=== PATIENT | male | born 1935 | race Caucasian/White ===

== ENCOUNTER → 2016-04-12 | Outpatient (CLI) | payer OTHER, MEDICARE | LOC: MMPC 09:00 | PROVIDERS: ATTEND Internal Medicine | DX: Z79.01 Long term (current) use of anticoagulants (principal); Z51.81 Encounter for therapeutic drug level monitoring; I48.91 Unspecified atrial fibrillation | CPT/HCPCS: 85610 ==

== ENCOUNTER → 2016-05-10 | Outpatient (CLI) | payer OTHER, MEDICARE ==
[2016-05-10 15:48] LABS: BUN/CREATININE RATIO 14.54 (6-20); CALCIUM 9.1 mg/dL (8.7-10.7); CREATININE 1.1 mg/dL (0.70-1.50); POTASSIUM 4.2 meq/L (3.8-5.2)
[2016-05-10 15:50] LABS: HEMOGLOBIN A1C 6.31 % (4.2-6.0); MEAN BLOOD GLUCOSE (CALC) 124.123 mg/dL
== END ==
LOC: MOB LAB 14:24
PROVIDERS: ATTEND Internal Medicine
DX: E11.9 Type 2 diabetes mellitus without complications (principal); I48.91 Unspecified atrial fibrillation; J43.9 Emphysema, unspecified; I10 Essential (primary) hypertension; F17.210 Nicotine dependence, cigarettes, uncomplicated; Z99.81 Dependence on supplemental oxygen
CPT/HCPCS: 36415; 80048; 83036; 99213

== ENCOUNTER → 2016-07-12 | Outpatient (CLI) | payer OTHER, MEDICARE ==
[2016-07-12 08:28] LABS: BASOPHILS # (AUTO) 0.02 10*3/UL; BASOPHILS % (AUTO) 0.4 % (0-1); EOSINOPHILS # (AUTO) 0.14 10*3/UL; EOSINOPHILS % (AUTO) 2.6 % (0-8); HEMATOCRIT 44.9 % (42.0-52.0); HEMOGLOBIN 14.3 g/dL (14.0-18.0); LYMPHOCYTES # (AUTO) 1.89 10*3/uL; MEAN CORPUSCULAR HEMOGLOBIN 33.3 PG (27-31); MEAN CORPUSCULAR HGB CONC 31.8 g/dL (33-37); MEAN CORPUSCULAR VOLUME 104.7 FL (80-90); MEAN PLATELET VOLUME 10.1 FL (7.4-12.2); MONOCYTES # (AUTO) 1.55 10*3/UL (0.3-0.8); NEUTROPHILS # (AUTO) 1.74 10*3/UL; NEUTROPHILS % (AUTO) 32.5 % (50-80); RED BLOOD COUNT 4.29 10^6/uL (4.70-6.10)
[2016-07-12 08:40] LABS: PLATELET MORPHOLOGY COMMENT NORMAL MORPHOLOGY (NORM); RBC MORPHOLOGY COMMENT NORMAL MORPHOLOGY (NORM); WBC MORPHOLOGY COMMENT NORMAL MORPHOLOGY (NORM)
== END ==
LOC: LAB 07:57
PROVIDERS: ATTEND Internal Medicine
DX: D72.821 Monocytosis (symptomatic) (principal); J44.9 Chronic obstructive pulmonary disease, unspecified; I10 Essential (primary) hypertension; Z79.01 Long term (current) use of anticoagulants; Z51.81 Encounter for therapeutic drug level monitoring; I48.91 Unspecified atrial fibrillation
CPT/HCPCS: 36415; 85025; 85610

== ENCOUNTER → 2016-07-19 | Outpatient (CLI) | payer OTHER, MEDICARE | LOC: LAB 09:46 | PROVIDERS: ATTEND Dentist Oral and Maxillofacial Surgery | DX: Z79.01 Long term (current) use of anticoagulants (principal) | CPT/HCPCS: 36415; 85610 ==

== ENCOUNTER 2016-07-20 20:31 | Emergency (ER) | payer OTHER, MEDICARE ==
[2016-07-20] MEDS ORDERED: Sodium Chloride 0.9% 1,000 ML PRIMARY IV ONE (21:00)
[2016-07-20] MEDS ORDERED: NORMAL SALINE 10 ML SYRINGE FLUSH IVP PRN (21:00)
[2016-07-20 21:36] LABS: BASOPHILS # (AUTO) 0.01 10*3/UL; BASOPHILS % (AUTO) 0.1 % (0-1); EOSINOPHILS # (AUTO) 0.12 10*3/UL; EOSINOPHILS % (AUTO) 0.9 % (0-8); HEMATOCRIT 43.6 % (42.0-52.0); HEMOGLOBIN 13.8 g/dL (14.0-18.0); MEAN CORPUSCULAR HEMOGLOBIN 33.3 PG (27-31); MEAN CORPUSCULAR HGB CONC 31.7 g/dL (33-37); MEAN CORPUSCULAR VOLUME 105.1 FL (80-90); MEAN PLATELET VOLUME 10.4 FL (7.4-12.2); MONOCYTES # (AUTO) 3.73 10*3/UL (0.3-0.8); MONOCYTES % (AUTO) 28.1 % (5-15); NEUTROPHILS # (AUTO) 8.44 10*3/UL; NEUTROPHILS % (AUTO) 63.6 % (50-80); RED BLOOD COUNT 4.15 10^6/uL (4.70-6.10)
[2016-07-20 21:41] LABS: PLATELET MORPHOLOGY COMMENT NORMAL MORPHOLOGY (NORM); RBC MORPHOLOGY COMMENT NORMAL MORPHOLOGY (NORM); WBC MORPHOLOGY COMMENT NORMAL MORPHOLOGY (NORM)
[2016-07-20 21:44] VITALS: RESP 24; TEMP 97.5
[2016-07-20 21:47] LABS: BUN/CREATININE RATIO 17.27 (6-20); C-REACTIVE PROTEIN 1.4 mg/dL (0.0-0.9); CALCIUM 8.9 mg/dL (8.7-10.7); MAGNESIUM 1.6 mg/dL (1.6-2.4); SERUM ALBUMIN 4.2 g/dL (3.5-4.8)
--- NOTE | 2016-07-20 21:59 | EKG ---
[address] [address] Measurements Intervals Volin Rate: 70 P: MD: 0 QRS: -89 QRSD: 131 T: 87 QT: 412 QTc: 432 Interpretive Statements ELECTRONIC VENTRICULAR PACEMAKER ABNORMAL RHYTHM ECG Compared to ECG 02/01/2015 13:11:28 Atrial-paced complex(es) or rhythm no longer present Electronically Signed On 07-26-16 10:18:24 MDT by Edwin Davis MD [email or web address]
[2016-07-20] MEDS ORDERED: CLINDAMYCIN 150 MG CAPSULE PO SCH (22:30)
--- NOTE | 2016-07-20 23:36 | PDOC ---
General Adult HPI - General Chief Complaint: General Medical Stated Complaint: TREMORS Date Seen by Provider: 07/20/16 Time Seen by Provider: 20:35 Source: POSITIVE: Patient Exam Limitations: POSITIVE: No limitations Nurse's Notes Reviewed & Considered: Yes - History of Present Illness Initial Comment: The patient is an 80-year-old male who presents to the emergency department with shakiness. He underwent extensive dental procedure with the oral surgeon in [place] earlier this afternoon. He had several teeth removed including a wisdom tooth that was impacted. He also reports a known history of chronic atrial fibrillation and current pacer/defibrillator. He is currently taking Coumadin, Plavix and aspirin. None of this was discontinued prior to his procedure this morning. He apparently had an INR in [place] this morning prior to his dental work. His states that he did receive sedation when he was at the office during the procedure and she had to assist him into the car. She states that this evening he had onset of generalized shakiness. He had taken some pain medication and reports that his pain in his jaw is tolerable. He does have an increased area of swelling to the left jaw. He denies any current headache, chest pain, increased shortness of breath or any other associated symptoms. He does have COPD and wears oxygen at home continuously at 2 L. On arrival here in the emergency room his oxygen saturations were in the 80s on 2 L and he was bumped up to 4 to improve his oxygen saturations. Have you received a tetanus shot in the past 10 years?: Yes - Patient Home Medications Home Medications: Home Medications Aspirin 1 tab ORAL QD tab 09/07/10 Blood Sugar Diagnostic [Freestyle Lite Test Strips] 1 strip MC DAILY #90 strip 09/28/13 Atenolol 50 mg PO BID tab 11/08/13 Digoxin 1 tab PO DAILY tab 11/08/13 Clopidogrel Bisulfate [Plavix] 75 mg PO DAILY 03/03/14 Losartan Potassium 25 mg PO BID #30 tab 05/22/14 Multivitamin with Minerals [One Daily Complete] 1 tab PO DAILY 07/06/14 Tamsulosin HCl [Flomax] 1 tab PO QHS #90 tab 11/21/15 Albuterol Neb Soln 0.083% 1 vial INH Q4-6HRSPRN #120 vial 01/29/16 Methylprednisolone [Medrol] 4 mg PO TAD #21 box 01/29/16 Mirtazapine [Remeron] 1 tab-cap PO QHS #30 tab 02/12/16 Gabapentin 2 tab PO QD tab 03/03/16 Hydrocodone/Acetaminophen [Hydrocodon-Acetaminoph 7.5-325] 1 tab-cap PO Q4-6H # 60 tab 03/03/16 Atorvastatin Calcium [Lipitor] 1 tab-cap PO QHS #90 tab-cap 03/24/16 Warfarin Sodium 1 tab-cap PO ASDIR #30 tab 04/16/16 Budesonide Neb Soln [Pulmicort Neb Soln] 0.5 mg NEB DAILY #90 ml 06/29/16 Albuterol/Ipratrop Neb Soln [Duoneb Neb Soln] 1 vial NEB Q4H PRN #540 box Clindamycin HCl [Cleocin HCl] 300 mg PO TID #21 capsule 07/20/16 - Patient Allergies Allergies/Adverse Reactions: Allergies Allergy/AdvReac Type Severity Reaction Status Date / Time Penicillins Allergy Severe ANAPHLAXIS Verified 07/20/16 20:39 levofloxacin [Levofloxacin] Allergy Mild reticular Verified 07/20/16 20:39 rash on the trunk metoprolol succinate Allergy HIVES Verified 07/20/16 20:39 [From Toprol XL] sitagliptin phosphate AdvReac Mild diarrhea Verified 07/20/16 20:39 [From Januvia] and electrolyte abnormalities bee sting Allergy Severe ANAPHLAXIS Uncoded 07/20/16 20:39 HORSE SERUM Allergy Intermediate HIVES Uncoded 07/20/16 20:39 Past Medical History - heen HEENT History: Hard of Hearing, Deaf Cardiovascular History: Hypertension, Previous [place], CAD, Pacemaker, Internal Defibrillator, Other (please comment) Additional Cardiovasular History: Chronic Atrial fibrillation. carotid art stent 05/2011. stents 01/2006, 01/2014. pacemaker/defi replaced 04/09/14 Respiratory History: COPD, Pneumonia, Home Oxygen Use Additional Respiratory History: 2L NC at home Gastrointestinal History: GERD Genitourinary History: Other (please comment) Additional Genitourinary History: TROUBLE URINATING SEEN UROLOGIST 06/19 Endocrine History: Type 2 Diabetes (diet) Additional Endocrine History: NO PROBLEMS SINCE LOST 30 lbs--NO LONGER TAKING ORAL MEDS Musculoskeletal History: Arthritis, Back Pain Prosthesis or Implant: No Additional Musculoskeletal History: Chronic Back Pain Neurological History: Denies History Blood Disorders: Other (please comment) Additional Blood Disorders History: Warfarin use for chronic A-Fib. plavix and asp daily Psychiatric History: Depression, Anxiety Disorders History of Sexually Transmitted Diseases: No Cancer History: Denies History In Past Year Been Physically Harmed or Verbally Threatened: No History of MDRO: No History of Other Communicable Diseases: No Tobacco Use: Current Every Day Smoker Alcohol Use: Occasionally Substance Use Type: None Previous Surgical History: Yes Type / Date of Surgery: PACER/AICDCarotid endarterectomy, followed by CAROTID STENTS on the right side x 2 because of scarring and recurrent stenosis2 CARDIAC STENTS also. T&A/ BILAT CATARACAT EXT/ COLONOSCOPY/ CORONARY ANGIO/ VASECTOMY/ CARDIAC ABLATION Anesthesia Reactions: No Malignant Hyperthermia: No Significant Family History: Asthma, COPD, Heart disease, Hypertension, Lung disease Past Medical History Reviewed: Reviewed - No Changes ROS - Limitations ROS Limitations: No Limitations Constitution: REPORTS: Chills. DENIES: Fever Cardiovascular: REPORTS: Denies Cardiac Symptoms Respiratory: REPORTS: Denies Resp Symptoms Neurological: DENIES: Headache, Numbness, Weakness Gastrointestinal: REPORTS: Denies GI Symptoms Musculoskeletal: REPORTS: Denies MS Symptoms Eyes: REPORTS: Denies Symptoms ENT: REPORTS: Other (Increased area of swelling to the left jaw, only minimal bleeding into his mouth from recent dental extractions). DENIES: Sore Throat Skin: DENIES: Rash General Adult Exam - General Appearance General Appearance: POSITIVE: Alert, Cooperative, No Acute Distress - HEENT HEENT: POSITIVE: Eyes Inspection Nml, Ears Inspection Nml, Nose Inspection Nml, Other (The patient has a significant hematoma to the left cheek and mandible region with some mild extension down in the submandibular region, he has minimal active bleeding from tooth extraction sites on the left side, no swelling to the posterior oropharynx and his voice is normal) - Neck Neck: POSITIVE: Normal Inspection. NEGATIVE: Lymphadenopathy - Respiratory Respiratory: POSITIVE: No Respiratory Distress, Breath Sounds Normal - Cardiovascular Cardiovascular: POSITIVE: Regular Rate & Rhythm, No Murmur Peripheral Pulses: Dorsalis-pedis (R): 2+, Dorsalis-pedis (L): 2+ - Abdomen Abdomen: Soft: (All Quadrants), Denies Tenderness: (All Quadrants), No Distention: (All Quadrants) - Skin Skin: POSITIVE: Normal Color, No Rash - Extremities Extremity: Normal ROM: (All Extremities), Normal Inspection: (All Extremities) - Neurological / Psychological Neurological: POSITIVE: Oriented X3. NEGATIVE: Motor Normal, Sensation Normal General Adult Progress - Results Reviewed by me Lab Results Reviewed: Yes Lab Results:: Laboratory Results 07/20/16 Range/Units 21:30 WBC 13.26 H (4.8-10.8) 10^3/uL RBC 4.15 L (4.70-6.10) 10^6/uL Hgb 13.8 L (14.0-18.0) g/dL Hct 43.6 (42.0-52.0) % MCV 105.1 H (80-90) FL MCH 33.3 H (27-31) PG MCHC 31.7 L (33-37) g/dL RDW Std Deviation 46.1 (39-50) fL RDW Coeff of Ellen 12.2 (11.5-14.5) % Plt Count 120 L (140-350) 10*3/uL MPV 10.4 (7.4-12.2) FL Immature Gran % (Auto) 0.5 (0-5) % Neut % (Auto) 63.6 (50-80) % Lymph % (Auto) 6.8 L (10-50) % [place] % (Auto) 28.1 H (5-15) % Eos % (Auto) 0.9 (0-8) % Baso % (Auto) 0.1 (0-1) % Immature Gran # (Auto) 0.06 10*3/UL Neut # (Auto) 8.44 10*3/UL Lymph # (Auto) 0.90 10*3/uL [place] # (Auto) 3.73 H (0.3-0.8) 10*3/UL Eos # (Auto) 0.12 10*3/UL Baso # (Auto) 0.01 10*3/UL WBC Morphology Comment Normal morphology (NORM) Plt Morphology Comment Normal morphology (NORM) RBC Morph Comment Normal morphology (NORM) PT 26.1 H (9.7-11.4) secs INR 2.49 (0.00-5.90) N/A Sodium 141 (135-145) meq/L Potassium 4.9 (3.8-5.2) meq/L Chloride 99 (98-112) meq/L Carbon Dioxide 33 (23-33) meq/L Anion Gap 9 (5-20) BUN 19 (7-22) mg/dL Creatinine 1.1 (0.70-1.50) mg/dL Estimated GFR (>60 ml/min/1.73m(2)) BUN/Creatinine Ratio 17.27 (6-20) Glucose 121 H (78-110) mg/dL Calculated Osmolality 294.0 H (267-292) mOsm/kg Lactic Acid 1.1 (0.70-2.10) MMOL/L Calcium 8.9 (8.7-10.7) mg/dL Magnesium 1.6 (1.6-2.4) mg/dL Total Bilirubin 0.9 (0.3-1.2) mg/dL AST 36 (21-57) IU/L ALT 39 (21-72) IU/L Alkaline Phosphatase 68 (38-126) IU/L Troponin I 0.027 (< 0.040) ng/mL C-Reactive Protein 1.4 H (0.0-0.9) mg/dL Total Protein 7.2 (6.1-8.0) g/dL Albumin 4.2 (3.5-4.8) g/dL Globulin 3.0 (2.50-4.10) g/dL Albumin/Globulin Ratio 1.40 (1.3-2.0) mg/g - Patient's Progress MDM / ED Course: The patient was mildly hypoxic on arrival and his oxygen was turned up bring his oxygen saturations in the mid 90s. He slowly started to feel better. His blood work is all essentially unremarkable and INR remains 2.4. He does have a significant hematoma to the left cheek from his recent dental procedure. He likely had some hypoxia related to the sedation and pain medication administered after his dental extraction. He wants to go home at this point. I think this is reasonable. He does have an oximeter at home and can monitor his oxygen increases oxygen if he needs to. He did have fairly extensive dental work and now has a very large hematoma. He was placed on clindamycin 300 mg 3 times a day. He is advised return to the emergency room if any worsening or change in symptoms. He will contact his oral surgeon tomorrow to notify him of the hematoma. Recommend follow-up with primary care in 3-5 days. - Consult Counseled: POSITIVE: Patient, Family, RE: Lab Results, RE: DX, RE: Need for F/U Patient Care Time - Estimated PCT Patient Care Time (In Minutes): 30 Vital Signs - Recent Vital Signs Vital Signs: Vital Signs (Last 8 hours) Temp Pulse Resp BP Pulse Ox 07/20/16 20:33 97.5 F 70 24 157/75 93 - VS Reviewed Vital Signs Reviewed: Yes Discharge Clinical Impression: Facial hematoma, Hypoxemia, COPD (chronic obstructive pulmonary disease) Condition: Stable Prescriptions / Orders: Clindamycin HCl [Cleocin HCl] 300 mg PO TID #21 capsule Patient Instructions Given at Discharge: COPD (Chronic Obstructive Pulmonary Disease) (ED), Hematoma (ED) Additional Instructions: There is a hematoma associated with your dental work earlier today. Recommend ice packs. This will resolve however will likely take several months. Recommend calling your oral surgeon tomorrow to notify him and arrange follow- up. In addition year been started on clindamycin 300 mg 3 times a day for 7 days to cover for any potential infection. The cause of the shakiness is unclear however may be related to the sedative that they gave him during the procedure and his oxygen levels were slightly low likely related to this as well. Monitor his oxygen with the pulse oximeter at home. It is okay to turn his oxygen levels up at night and with activity. Return to the emergency room if any worsening or change in symptoms. Follow Up With: CONRADO MARIA [Primary Care Provider] -
== END 2016-07-20 22:42 | disposition home or self-care (01) ==
LOC: ER 20:31
DX: R09.02 Hypoxemia (principal); J44.9 Chronic obstructive pulmonary disease, unspecified; S00.83XA Contusion of other part of head, initial encounter; I48.2 Chronic atrial fibrillation; E11.9 Type 2 diabetes mellitus without complications; Z79.01 Long term (current) use of anticoagulants; Z95.810 Presence of automatic (implantable) cardiac defibrillator; Z98.818 Other dental procedure status
CPT/HCPCS: 36415; 80053; 82948; 83605; 83735; 84484; 85025; 85610; 86140; 87040; 93005; 93010; 99283; J7030

== ENCOUNTER → 2016-07-31 | Outpatient (CLI) | payer OTHER, MEDICARE | LOC: MMPC 11:11 | PROVIDERS: ATTEND Physician Assistant | DX: K06.8 Other specified disorders of gingiva and edentulous alveolar ridge (principal); Z79.01 Long term (current) use of anticoagulants ==

== ENCOUNTER → 2016-08-04 | Outpatient (CLI) | payer OTHER, MEDICARE | LOC: MMPC 11:11 | PROVIDERS: ATTEND Internal Medicine | DX: I48.91 Unspecified atrial fibrillation (principal); J43.9 Emphysema, unspecified; R25.1 Tremor, unspecified; R09.02 Hypoxemia; S00.83XD Contusion of other part of head, subsequent encounter | CPT/HCPCS: 99213; G0463 ==

== ENCOUNTER → 2016-08-09 | Outpatient (CLI) | payer OTHER, MEDICARE | LOC: MMPC 09:00 | PROVIDERS: ATTEND Internal Medicine | DX: Z79.01 Long term (current) use of anticoagulants (principal); Z51.81 Encounter for therapeutic drug level monitoring; I48.91 Unspecified atrial fibrillation | CPT/HCPCS: 85610 ==

== ENCOUNTER → 2016-09-09 | Outpatient (CLI) | payer OTHER, MEDICARE | LOC: MMPC 09:00 | PROVIDERS: ATTEND Internal Medicine | DX: Z79.01 Long term (current) use of anticoagulants (principal); Z51.81 Encounter for therapeutic drug level monitoring; I48.91 Unspecified atrial fibrillation | CPT/HCPCS: 85610 ==

== ENCOUNTER → 2016-10-07 | Outpatient (CLI) | payer OTHER, MEDICARE | LOC: MMPC 09:00 | PROVIDERS: ATTEND Internal Medicine | DX: Z79.01 Long term (current) use of anticoagulants (principal); Z51.81 Encounter for therapeutic drug level monitoring; I48.91 Unspecified atrial fibrillation | CPT/HCPCS: 85610 ==

== ENCOUNTER → 2016-10-14 | Outpatient (CLI) | payer OTHER, MEDICARE | LOC: MMPC 10:00 | PROVIDERS: ATTEND Podiatrist Foot & Ankle Surgery | DX: L60.3 Nail dystrophy (principal); L60.0 Ingrowing nail; E11.9 Type 2 diabetes mellitus without complications | CPT/HCPCS: 11720; G0463 ==

== ENCOUNTER 2016-10-27 17:58 | Emergency (ER) | payer OTHER, MEDICARE ==
[2016-10-27 18:37] VITALS: RESP 20; TEMP 96.9
[2016-10-27 19:23] LABS: BASOPHILS % (AUTO) 0.3 % (0-1); EOSINOPHILS % (AUTO) 3.6 % (0-8); HEMATOCRIT 39.4 % (42.0-52.0); HEMOGLOBIN 12.2 g/dL (14.0-18.0); MEAN CORPUSCULAR HEMOGLOBIN 32.2 PG (27-31); MEAN PLATELET VOLUME 11.1 FL (7.4-12.2); MONOCYTES % (AUTO) 35.1 % (5-15); NEUTROPHILS % (AUTO) 29.4 % (50-80); RED BLOOD COUNT 3.79 10^6/uL (4.70-6.10)
[2016-10-27 19:24] LABS: BASOPHILS # (AUTO) 0.02 10*3/UL; EOSINOPHILS # (AUTO) 0.21 10*3/UL; LYMPHOCYTES # (AUTO) 1.82 10*3/uL; MONOCYTES # (AUTO) 20.4 10*3/UL (0.3-0.8); PLATELET MORPHOLOGY COMMENT NORMAL MORPHOLOGY (NORM); RBC MORPHOLOGY COMMENT NORMAL MORPHOLOGY (NORM); WBC MORPHOLOGY COMMENT NORMAL MORPHOLOGY (NORM)
[2016-10-27 19:26] LABS: BUN/CREATININE RATIO 17.27 (6-20); CALCIUM 8.8 mg/dL (8.7-10.7); SERUM ALBUMIN 3.8 g/dL (3.5-4.8)
[2016-10-27 19:29] LABS: BILIRUBIN,URINE NEGATIVE (NEG); CLARITY,URINE CLEAR (CLEAR); COLOR,URINE YELLOW; GLUCOSE, URINE (UA) NEGATIVE (NEG); NITRATE,URINE NEGATIVE (NEG); OCCULT BLOOD,URINE TRACE (NEG); PH,URINE 6.5 (5.0-8.5); PROTEIN,URINE TRACE mg/dl (NEG); UROBILINOGEN,URINE 0.2 EU/dL (0.2)
[2016-10-27 19:30] LABS: RBC,URINE 0-2 /hpf; SQUAMOUS EPITHELIAL CELL,UR RARE
--- NOTE | 2016-10-27 20:52 | PDOC ---
Male Genitourinary Problem HPI - General Chief Complaint: Genitourinary Complaint Stated Complaint: UNABLE TO URINATE SINCE AM WITH PAIN Date Seen by Provider: 10/27/16 Time Seen by Provider: 18:20 - History of Present Illness Initial Comments: Patient is a very nice 81-year-old gentleman who presents to the emergency department tonight with inability to void. He states that he last urinated when a very first woke up this morning so it's been around 12 hours so. He has tried not to drink too much today because he is afraid that he will be able to go. He's had chronic problems with his prostate is under the care of urologist but has never needed any sort of surgical procedures at all. He has had cystoscopy in the past has never had any bladder cancer bladder tumor prostate cancer or other concerning issues. He's had no dysuria or urinary tract infection symptoms lately. - Patient Home Medications Home Medications: Home Medications Blood Sugar Diagnostic [Freestyle Lite Test Strips] 1 strip MC DAILY #90 strip 09/28/13 Multivitamin with Minerals [One Daily Complete] 1 tab PO DAILY 07/06/14 Tamsulosin HCl [Flomax] 1 tab PO QHS #90 tab 11/21/15 Albuterol Neb Soln 0.083% 1 vial INH Q4-6HRSPRN #120 vial 01/29/16 Mirtazapine [Remeron] 1 tab-cap PO QHS #30 tab 02/12/16 Hydrocodone/Acetaminophen [Hydrocodon-Acetaminoph 7.5-325] 1 tab-cap PO Q4-6H # 60 tab 03/03/16 Atorvastatin Calcium [Lipitor] 1 tab-cap PO QHS #90 tab-cap 03/24/16 Warfarin Sodium 1 tab-cap PO ASDIR #30 tab 04/16/16 Budesonide Neb Soln [Pulmicort Neb Soln] 0.5 mg NEB DAILY #90 ml 06/29/16 Albuterol/Ipratrop Neb Soln [Duoneb Neb Soln] 1 vial NEB Q4H PRN #540 box Metoprolol Succinate 1 tab PO DAILY tab 07/31/16 Aspirin [Aspir 81] 1 tab PO QD tab 08/04/16 Digoxin 1 tab PO DAILY #0 tab 08/04/16 Gabapentin 4 cap PO QHS cap 08/04/16 Losartan Potassium 1 tab PO QD #30 tab 08/04/16 - Patient Allergies Allergies/Adverse Reactions: Allergies Allergy/AdvReac Type Severity Reaction Status Date / Time Penicillins Allergy Severe ANAPHLAXIS Verified 10/27/16 18:30 levofloxacin [Levofloxacin] Allergy Mild reticular Verified 10/27/16 18:30 rash on the trunk metoprolol succinate Allergy HIVES Verified 10/27/16 18:30 [From Toprol XL] sitagliptin phosphate AdvReac Mild diarrhea Verified 10/27/16 18:30 [From Januvia] and electrolyte abnormalities bee sting Allergy Severe ANAPHLAXIS Uncoded 10/27/16 18:30 HORSE SERUM Allergy Intermediate HIVES Uncoded 10/27/16 18:30 Past Medical History - heen HEENT History: Hard of Hearing, Deaf Cardiovascular History: Hypertension, Previous [place], CAD, Pacemaker, Internal Defibrillator, Other (please comment) Additional Cardiovasular History: Chronic Atrial fibrillation. carotid art stent 05/2011. stents 01/2006, 01/2014. pacemaker/defi replaced 04/09/14 Respiratory History: COPD, Pneumonia, Home Oxygen Use Additional Respiratory History: 2L NC at home Gastrointestinal History: GERD Genitourinary History: Other (please comment) Additional Genitourinary History: TROUBLE URINATING SEEN UROLOGIST 06/19 Endocrine History: Type 2 Diabetes (diet) Additional Endocrine History: NO PROBLEMS SINCE LOST 30 lbs--NO LONGER TAKING ORAL MEDS Musculoskeletal History: Arthritis, Back Pain Prosthesis or Implant: No Additional Musculoskeletal History: Chronic Back Pain Neurological History: Denies History Blood Disorders: Other (please comment) Additional Blood Disorders History: Warfarin use for chronic A-Fib. plavix and asp daily Psychiatric History: Depression, Anxiety Disorders History of Sexually Transmitted Diseases: No Male Reproductive History: Denies History Cancer History: Denies History In Past Year Been Physically Harmed or Verbally Threatened: No History of MDRO: No History of Other Communicable Diseases: No Tobacco Use: Current Every Day Smoker Alcohol Use: Occasionally Substance Use Type: None Previous Surgical History: Yes Type / Date of Surgery: PACER/AICDCarotid endarterectomy, followed by CAROTID STENTS on the right side x 2 because of scarring and recurrent stenosis2 CARDIAC STENTS also. T&A/ BILAT CATARACAT EXT/ COLONOSCOPY/ CORONARY ANGIO/ VASECTOMY/ CARDIAC ABLATION Anesthesia Reactions: No Malignant Hyperthermia: No Significant Family History: Asthma, COPD, Heart disease, Hypertension, Lung disease Past Medical History Reviewed: Reviewed - No Changes ROS - Limitations ROS Limitations: No Limitations Constitution: REPORTS: Denies Symptoms Cardiovascular: REPORTS: Denies Cardiac Symptoms Respiratory: REPORTS: Denies Resp Symptoms Gastrointestinal: REPORTS: Denies GI Symptoms Male Genitourinary Exam - General Appearance General Appearance: POSITIVE: Alert, Cooperative, No Acute Distress - Abdomen Abdomen: Soft: (All Quadrants), Normal Bowel Sounds: (All Quadrants), Denies Tenderness: (All Quadrants) - Genital / Rectal Genitals: POSITIVE: Normal Inspection, Normal Palp. of Testicles, Circumcised. NEGATIVE: Urethral Discharge, Scrotal Swelling, Hernia Mass - HEENT HEENT: POSITIVE: Head Inspection Nml - Respiratory Respiratory: POSITIVE: No Respiratory Distress Male Genitourinary Progress - Results Reviewed by me Lab Results Reviewed: Yes Lab Results: Laboratory Results 10/27/16 Range/Units 19:15 WBC 5.81 (4.8-10.8) 10^3/uL RBC 3.79 L (4.70-6.10) 10^6/uL Hgb 12.2 L (14.0-18.0) g/dL Hct 39.4 L (42.0-52.0) % MCV 104.0 H (80-90) FL MCH 32.2 H (27-31) PG MCHC 31.0 L (33-37) g/dL RDW Std Deviation 43.5 (39-50) fL RDW Coeff of Ellen 11.7 (11.5-14.5) % Plt Count 106 L (140-350) 10*3/uL MPV 11.1 (7.4-12.2) FL Immature Gran % (Auto) 0.3 (0-5) % Neut % (Auto) 29.4 L (50-80) % Lymph % (Auto) 31.3 (10-50) % [place] % (Auto) 35.1 H (5-15) % Eos % (Auto) 3.6 (0-8) % Baso % (Auto) 0.3 (0-1) % Immature Gran # (Auto) 0.02 10*3/UL Neut # (Auto) 1.70 10*3/UL Lymph # (Auto) 1.82 10*3/uL [place] # (Auto) 20.4 H (0.3-0.8) 10*3/UL Eos # (Auto) 0.21 10*3/UL Baso # (Auto) 0.02 10*3/UL WBC Morphology Comment Normal morphology (NORM) Plt Morphology Comment Normal morphology (NORM) RBC Morph Comment Normal morphology (NORM) Sodium 143 (135-145) meq/L Potassium 4.2 (3.8-5.2) meq/L Chloride 99 (98-112) meq/L Carbon Dioxide 39 H (23-33) meq/L Anion Gap 5 (5-20) BUN 19 (7-22) mg/dL Creatinine 1.1 (0.70-1.50) mg/dL Estimated GFR (>60 ml/min/1.73m(2)) BUN/Creatinine Ratio 17.27 (6-20) Glucose 78 (78-110) mg/dL Calculated Osmolality 296.0 H (267-292) mOsm/kg Calcium 8.8 (8.7-10.7) mg/dL Total Bilirubin 0.6 (0.3-1.2) mg/dL AST 26 (21-57) IU/L ALT 31 (21-72) IU/L Alkaline Phosphatase 74 (38-126) IU/L Total Protein 6.6 (6.1-8.0) g/dL Albumin 3.8 (3.5-4.8) g/dL Globulin 2.8 (2.50-4.10) g/dL Albumin/Globulin Ratio 1.30 (1.3-2.0) mg/g Ur Collection Type v Urine Color Yellow Urine Clarity Clear (CLEAR) Urine pH 6.5 (5.0-8.5) Ur Specific [place] 1.020 (1.005-1.030) Urine Protein Trace (NEG) mg/dl Urine Glucose (UA) Negative (NEG) mg/dL Urine Ketones Negative (NEG) Urine Occult Blood Trace H (NEG) Urine Nitrate Negative (NEG) Urine Bilirubin Negative (NEG) Urine Urobilinogen 0.2 (0.2) EU/dL Ur Leukocyte Esterase Negative (NEG) Urine RBC 0-2 (NONE) /hpf Urine WBC None (NONE) Ur Squamous Epith Cells Rare (NONE) Ur Renal Epithelial Cell None (NONE) Urine Crystals None Urine Bacteria None (NONE) Urine Casts None (NONE) Urine Mucus None (NONE) Urine Trichomonas None (NONE) Urine Yeast None (NONE) Ur Culture Indicated? Culture not set - Patient's Progress MDM / ED Course: This patient had very benign labs and his exam was very benign as well. He had a bladder scan revealing about 300 mL the urine and a coud catheter was placed easily draining this 300 mL of urine with a post void bladder scan of around 15 mL of urine. Ultimately I think this patient just has severe prostate enlargement and obstructive uropathy secondary to this. I offered to leave the catheter in place and send him with a leg bag has a negative MB likely that he' ll obstruct in the very near future if not again tonight. He however does not want to proceed with this route he is hopeful that he'll be able to void later this evening or in the morning he's also very hopeful that'll get in with his urologist tomorrow would like to avoid a catheter for right now of possible. We will go ahead and on her that I did tell him that if he needs to get a catheter placed later tonight he can return for catheter placement otherwise he should follow-up with his urologist tomorrow for more definitive evaluation and management. Patient Care Time - Estimated PCT Patient Care Time (In Minutes): 30 Vital Signs - Recent Vital Signs Vital Signs: Vital Signs (Last 8 hours) Temp Pulse Resp BP Pulse Ox 10/27/16 18:10 96.9 F 77 20 109/96 95 - VS Reviewed Vital Signs Reviewed: Yes Discharge Clinical Impression: Obstructive uropathy Discharge Disposition: Discharged to Home Condition: Stable Patient Instructions Given at Discharge: Urinary Retention in Men (ED) Additional Instructions: Follow-up with your urologist as soon as possible. Return for placement of [place] catheter with leg bag if you are unable to void Follow-up with her primary care provider in the near future to discuss your current issues Follow Up With: CONRADO MARIA [Primary Care Provider] -
== END 2016-10-27 20:35 | disposition home or self-care (01) ==
LOC: ER 17:58
DX: N13.9 Obstructive and reflux uropathy, unspecified (principal); I48.2 Chronic atrial fibrillation; Z95.0 Presence of cardiac pacemaker; I10 Essential (primary) hypertension; E11.9 Type 2 diabetes mellitus without complications; Z79.01 Long term (current) use of anticoagulants; R33.9 Retention of urine, unspecified
CPT/HCPCS: 80053; 81001; 81003; 85025; 99282

== ENCOUNTER → 2016-11-04 | Outpatient (CLI) | payer OTHER, MEDICARE | LOC: MMPC 09:00 | PROVIDERS: ATTEND Internal Medicine | DX: Z79.01 Long term (current) use of anticoagulants (principal); Z51.81 Encounter for therapeutic drug level monitoring; I48.91 Unspecified atrial fibrillation | CPT/HCPCS: 85610 ==

== ENCOUNTER 2017-04-19 23:44 | Inpatient (IN) ==
[2017-04-19] MEDS ORDERED: NORMAL SALINE 10 ML SYRINGE FLUSH IVP PRN (23:51)
[2017-04-19] MEDS ORDERED: ALBUTEROL SULFATE 2.5 MG/3 ML NEB ONE ×2 (23:53→23:55)
[2017-04-19] MEDS ORDERED: methylPREDNISolone 125 MG/2 ML VIAL IVP ONE (23:53)
--- NOTE | 2017-04-19 23:58 | PDOC ---
Dyspnea HPI - General Chief Complaint: Respiratory Complaint Stated Complaint: DYSPNEA Date Seen by Provider: 04/19/17 Time Seen by Provider: 23:45 Source: POSITIVE: Patient Exam Limitations: POSITIVE: No limitations Treatment Prior to Arrival: REPORTS: Other (Candice andrade at 10:30 this evening) Nurse's Notes Reviewed & Considered: Yes - History of Present Illness Initial Comments: The patient is an 81-year-old male who presents to the emergency department with increased difficulty breathing. He has a history of COPD as well as chronic atrial fibrillation. He reports that earlier today he had onset of increased difficulty breathing. He was seen at the clinic per Dr. Reyna and started on budesonide neb treatments. He states that he seemed to be doing okay throughout the day however this evening had increased wheezing and shortness of breath. He does have some associated cough however is phlegm is mostly clear. He denies any fevers or chills. He denies any current chest pain. He does report that he has had some increased swelling in his lower extremities recently. - Patient Home Medications Home Medications: Home Medications Blood Sugar Diagnostic [Freestyle Lite Test Strips] 1 strip MC DAILY #90 strip 09/28/13 Multivitamin with Minerals [One Daily Complete] 1 tab PO DAILY 07/06/14 mirtazapine 15 mg tablet 15 mg PO QHS #30 tab-cap 02/08/17 ipratropium-albuterol 0.5 mg-3 mg(2.5 mg base)/3 mL nebulization soln 3 ml INH Q4H PRN #540 ml 02/23/17 aspirin 81 mg tablet,delayed release 81 mg PO QD tab 03/09/17 digoxin 125 mcg tablet 125 mcg PO DAILY #0 tab 03/09/17 gabapentin 300 mg capsule 1,200 mg PO QHS cap 03/09/17 losartan 50 mg tablet 50 mg PO QD #30 tab 03/09/17 metoprolol succinate ER 100 mg tablet,extended release 24 hr 100 mg PO DAILY tab 03/09/17 tamsulosin 0.4 mg capsule 0.4 mg PO QHS #90 tab 03/09/17 warfarin 3 mg tablet 3 mg PO ASDIR #30 tab 03/09/17 hydrocodone 7.5 mg-acetaminophen 325 mg tablet 1 tab PO Q4-6H #60 tab 03/14/17 atorvastatin 80 mg tablet 80 mg PO QHS #90 tab-cap 03/29/17 albuterol sulfate 2.5 mg/3 mL (0.083 %) solution for nebulization 2.5 mg INH Q4- 6H PRN 7 Days #180 ml 04/01/17 budesonide 0.5 mg/2 mL suspension for nebulization 0.5 mg INH DAILY #90 ml 04/15 clindamycin 150 mg capsule 150 mg PO QID #12 cap 04/19/17 - Patient Allergies Allergies/Adverse Reactions: Allergies 3 Allergy/AdvReac Type Severity Reaction Status Date / Time Penicillins Allergy Severe ANAPHLAXIS Verified 04/20/17 00:24 levofloxacin [Levofloxacin] Allergy Mild reticular Verified 04/20/17 00:24 rash on the trunk metoprolol succinate Allergy HIVES Verified 04/20/17 00:23 [From Toprol XL] sitagliptin phosphate AdvReac Mild diarrhea Verified 04/20/17 00:24 [From Januvia] and electrolyte abnormalities bee sting Allergy Severe ANAPHLAXIS Uncoded 04/20/17 00:23 HORSE SERUM Allergy Intermediate HIVES Uncoded 04/20/17 00:23 Past Medical History - heen HEENT History: Hard of Hearing, Deaf Cardiovascular History: Hypertension, Previous [place], CAD, Pacemaker, Internal Defibrillator, Other (please comment) Additional Cardiovasular History: Chronic Atrial fibrillation. carotid art stent 05/2011. stents 01/2006, 01/2014. pacemaker/defi replaced 04/09/14 Respiratory History: COPD, Pneumonia, Home Oxygen Use Additional Respiratory History: 2L NC at home Gastrointestinal History: GERD Genitourinary History: Other (please comment) Additional Genitourinary History: TROUBLE URINATING SEEN UROLOGIST 06/19 Endocrine History: Type 2 Diabetes (diet) Additional Endocrine History: NO PROBLEMS SINCE LOST 30 lbs--NO LONGER TAKING ORAL MEDS Musculoskeletal History: Arthritis, Back Pain Prosthesis or Implant: No Additional Musculoskeletal History: Chronic Back Pain Neurological History: Denies History Blood Disorders: Other (please comment) Additional Blood Disorders History: Warfarin use for chronic A-Fib. plavix and asp daily Psychiatric History: Depression, Anxiety Disorders History of Sexually Transmitted Diseases: No Male Reproductive History: Denies History Cancer History: Denies History In Past Year Been Physically Harmed or Verbally Threatened: No History of MDRO: No History of Other Communicable Diseases: No Tobacco Use: Former Smoker Alcohol Use: Occasionally Type of alcohol normally used: Beer In the Past 12 Months, Have Used or Abuse Any Substance: None Previous Surgical History: Yes Type / Date of Surgery: PACER/AICDCarotid endarterectomy, followed by CAROTID STENTS on the right side x 2 because of scarring and recurrent stenosis2 CARDIAC STENTS also. T&A/ BILAT CATARACAT EXT/ COLONOSCOPY/ CORONARY ANGIO/ VASECTOMY/ CARDIAC ABLATION Anesthesia Reactions: No Malignant Hyperthermia: No Significant Family History: Asthma, COPD, Heart disease, Hypertension, Lung disease Past Medical History Reviewed: Reviewed - No Changes ROS - Limitations ROS Limitations: No Limitations Constitution: DENIES: Chills, Fever Cardiovascular: REPORTS: Edema. DENIES: Chest Pain, Heart Racing Respiratory: REPORTS: Cough Non Productive, Shortness Of Breath, Wheezing Neurological: REPORTS: Denies Neuro Symptoms Gastrointestinal: REPORTS: Denies GI Symptoms Musculoskeletal: REPORTS: Denies MS Symptoms Eyes: REPORTS: Denies Symptoms ENT: REPORTS: Denies Symptoms Skin: DENIES: Rash Dyspnea Physical Exam - General Appearance General Appearance: REPORTS: Alert, Cooperative - HEENT HEENT: POSITIVE: Head Inspection Nml, Eyes Inspection Nml, Ears Inspection Nml, Pharynx Inspect. Nml - Neck Neck: REPORTS: Normal Inspection. DENIES: JVD Present - Respiratory Respiratory: REPORTS: Other (The patient does have tachypnea and some increased work of breathing on arrival, significant bilateral wheezes) - Cardiovascular Cardiovascular: REPORTS: Regular Rate and Rhythm, Heart Sounds Normal Peripheral Pulses: Dorsalis-pedis (R): 2+, Dorsalis-pedis (L): 2+ - Abdomen Abdomen: Soft: (All Quadrants), Denies Tenderness: (All Quadrants), No Distention: (All Quadrants) - Skin Skin: REPORTS: Intact, No Rash - Extremities Extremity: Normal ROM: (All Extremities), Normal Inspection: (All Extremities) - Neurological / Psychological Neurological: POSITIVE: Oriented X3, Motor Normal, Sensation Normal Dyspnea Progress - Results Reviewed by me Xrays/CTs/US Reviewed by me: Yes Radiology Findings: Chest x-ray shows no obvious infiltrate. Lab Results Reviewed by Me: Yes CBC and BMP: 04/20/17 00:04 04/20/17 00:04 EKG Interpreted/Reviewed By Me:: Yes EKG Interpretation:: POSITIVE: Other (EKG shows a paced rhythm) - Patient's Progress MDM / ED Course: Blood cultures, lactate and venous blood gas were obtained with initial IV start. The patient received an albuterol neb treatment as well as Solu-Medrol 125 mg IV. His breathing improved significantly subjectively. His oxygen saturations are maintaining in the low to mid 90s on 3 L. His chest x-ray shows no obvious infiltrate or edema. His blood work is all essentially unremarkable except for mildly elevated troponin of 0.051. His d-dimer was normal. These findings were discussed with the patient and his daughter. In addition I did discuss the patient with Dr. Shin. The patient does have extensive cardiac history and a mildly elevated troponin. The patient did not have any chest pain. Dr. Shin recommended repeating the troponin for trend. His troponin was subsequently repeated 2 hours later and was actually lower. The patient did develop some increased wheezing again while waiting for the second troponin and received a DuoNeb with improvement again. This appears to be mostly COPD exacerbation. The patient will be admitted per Dr. Shin. - Consult Counseled: POSITIVE: Patient, Family, RE: Lab Results, RE: Radiology Results, RE : DX Patient Care Time - Estimated PCT Patient Care Time (In Minutes): 50 Vital Signs - Recent Vital Signs Vital Signs: Vital Signs (Last 8 hours) Temp Pulse Pulse Resp BP Pulse Ox 04/20/17 03:06 82 24 04/20/17 03:05 92 28 H 94 04/20/17 00:19 83 22 04/20/17 00:18 82 24 04/19/17 23:55 97.3 F 88 26 H 155/81 84 - VS Reviewed Vital Signs Reviewed: Yes Discharge Clinical Impression: COPD exacerbation, Elevated troponin Discharge Disposition: Admit to Inpatient Condition: Stable Follow Up With: CONRADO REYNA [Primary Care Provider] - Date Decision to Admit to Inpatient: 04/20/17 Time Decision to Admit to Inpatient: 03:30
[2017-04-20 00:08] LABS: BASOPHILS # (AUTO) 0.01 10*3/UL; BASOPHILS % (AUTO) 0.2 % (0-1); EOSINOPHILS # (AUTO) 0.17 10*3/UL; EOSINOPHILS % (AUTO) 2.8 % (0-8); Hematocrit [HCT] 42.4 % (42.0-52.0); Hemoglobin [HGB] 12.8 g/dL (14.0-18.0); LYMPHOCYTES # (AUTO) 1.69 10*3/uL; MEAN CORPUSCULAR HEMOGLOBIN 32.8 PG (27-31); MEAN CORPUSCULAR HGB CONC 30.2 g/dL (33-37); MEAN CORPUSCULAR VOLUME 108.7 FL (80-90); MEAN PLATELET VOLUME 10.7 FL (7.4-12.2); MONOCYTES # (AUTO) 1.73 10*3/UL (0.3-0.8); MONOCYTES % (AUTO) 28.9 % (5-15); NEUTROPHILS # (AUTO) 2.36 10*3/UL; NEUTROPHILS % (AUTO) 39.5 % (50-80)
[2017-04-20 00:20] LABS: BLOOD UREA NITROGEN 20 mg/dL (7-22); BUN/CREATININE RATIO 18.18 (6-20); SERUM ALBUMIN 4.4 g/dL (3.5-4.8)
[2017-04-20 00:21] LABS: PLATELET MORPHOLOGY COMMENT NORMAL MORPHOLOGY (NORM); RBC MORPHOLOGY COMMENT NORMAL MORPHOLOGY (NORM); WBC MORPHOLOGY COMMENT NORMAL MORPHOLOGY (NORM)
[2017-04-20 00:36] LABS: VENOUS PH 7.33 (7.32-7.42)
[2017-04-20] MEDS ORDERED: Magnesium Sulfate 1gm (Premix) 1 GM/100 ML BAG IV ONE (00:50)
--- NOTE | 2017-04-20 01:33 | EKG ---
[address] [address] Measurements Intervals [place] Rate: 81 P: [place]: 0 QRS: -83 QRSD: 136 T: 102 QT: 424 QTc: 461 Interpretive Statements ELECTRONIC VENTRICULAR PACEMAKER ABNORMAL RHYTHM ECG Compared to ECG 07/20/2016 21:57:37 No significant changes Electronically Signed On 04-20-17 10:32:30 MST by Edwin Davis MD [email or web address]
[2017-04-20] MEDS ORDERED: IPRATROPIUM/ALBUTEROL SULFATE 3 ML NEB NEB ONE ×2 (03:02→03:05)
[2017-04-20] MEDS ORDERED: ALBUTEROL SULFATE 2.5 MG/3 ML NEB PRN ×2 (03:45)
[2017-04-20] MEDS ORDERED: Warfarin Tab 3 MG TAB PO SCH (03:45)
[2017-04-20] MEDS ORDERED: LIDOCAINE W/ SODIUM BICARB 0.5 ML SYR SUBD PRN (03:45)
[2017-04-20] MEDS ORDERED: HYDROcodone-APAP 7.5 MG-325 MG TABLET PO SCH (03:45)
[2017-04-20] MEDS ORDERED: methylPREDNISolone 125 MG/2 ML VIAL IVP SCH (03:45)
[2017-04-20] MEDS: cefTRIAXone Inj 1 GM in Sodium Chloride 0.9% 100 ML IV SCH (05:15)
[2017-04-20] MEDS: methylPREDNISolone 125 MG/2 ML VIAL IVP SCH ×3 (06:26→20:18)
[2017-04-20] MEDS: NORMAL SALINE 10 ML SYRINGE FLUSH IVP PRN ×3 (06:26→20:18)
[2017-04-20] MEDS: IPRATROPIUM/ALBUTEROL SULFATE 3 ML NEB NEB PRN ×3 (06:46→15:07)
[2017-04-20] MEDS: BUDESONIDE 0.5 MG/2 ML NEB SCH (06:46)
[2017-04-20] MEDS: ALPRAZolam Tab 1 MG TABLET PO SCH ×4 (07:39→20:18)
[2017-04-20] MEDS: METOPROLOL SUCCINATE 100 MG SR 24H TABLET PO SCH (08:37)
[2017-04-20] MEDS: LOSARTAN 50 MG TABLET PO SCH (08:37)
[2017-04-20] MEDS: DIGOXIN 125 MCG TABLET PO SCH (08:38)
[2017-04-20] MEDS: ASPIRIN EC 81 MG TABLET PO SCH (08:38)
[2017-04-20] MEDS: Multivitamin Tab 1 TAB PO SCH (08:38)
[2017-04-20] MEDS: Warfarin Tab 3 MG TAB PO SCH ×2 (09:50→20:17)
[2017-04-20] MEDS ORDERED: HYDROcodone-APAP 7.5 MG-325 MG TABLET PO PRN (10:00)
--- NOTE | 2017-04-20 10:17 | DI ---
AP CHEST X-RAY, 04/19/2017 11:51 PM : Clinical History: Hypoxia. Previous Exam: 10/21/2015. There is no acute soft tissue or bony abnormality. Heart size is normal. The patient has 2 leads in t he right ventricle and a single lead in the right atrium with a combined pacemaker and defibrillator apparatus. There is no acute infiltrate or effusion, but the vascularity is increased and more promin ent than on the previous exam and there is haziness of the vessels. These findings are consistent wit h early CHF. Mediastinal structures are normal. There are no pulmonary nodules. Readin. There is no acute infiltrate or effusion. 2. Early CHF is suspected.
--- NOTE | 2017-04-20 12:37 | PDOC ---
HPI - History of Present Illness History of Present Illness: This very nice 81-year-old gentleman with history of COPD and chronic A. fib went to see his primary care physician was started on some budesonide and neb treatments patient got worse with increased shortness of breath and cough and decided to be seen in the ER where he was diagnosed with COPD exacerbation. He also had a slight bump in his troponins which are now 0 most likely from a little heart strain patient does have a defibrillator and mobile nice most likely need a cardiac workup from his boarder hand once he is discharged he does have some fluid in his lower extremities as well denies chest pain Past Medical History Medical History: 1. COPD on 2-1/2 L oxygen only at night.2. Hypertension 3. Hypercholesterolemia 4. History of coronary artery disease with previous stents 5. History of right carotid artery stents 6. History of pacemaker insertion7. History of A. fib on anticoagulation Surgical History: History of right carotid endarterectomy. Had a stent after that because of scarring. Family History: Reviewed an Not Pertinent Tobacco Use: Current Every Day Smoker In the Past 12 Months, Have Used or Abuse Any of the Following Substance: None Medication / Allergies Home Medications: Home Medications Medication Instructions Recorded Confirmed Type Blood Sugar Diagnostic [Freestyle 1 strip MC DAILY #90 strip 09/28/13 04/20/17 History Lite Test Strips] Multivitamin with Minerals [One 1 tab PO DAILY 07/06/14 04/20/17 History Daily Complete] mirtazapine 15 mg tablet 15 mg PO QHS #30 tab-cap 02/08/17 04/20/17 Rx ipratropium-albuterol 0.5 mg-3 3 ml INH Q4H PRN #540 ml 02/23/17 04/20/17 Rx mg(2.5 mg base)/3 mL nebulization soln aspirin 81 mg tablet,delayed 81 mg PO QD tab 03/09/17 04/20/17 History release digoxin 125 mcg tablet 125 mcg PO DAILY #0 tab 03/09/17 04/20/17 Rx gabapentin 300 mg capsule 1,200 mg PO QHS cap 03/09/17 04/20/17 History losartan 50 mg tablet 50 mg PO QD #30 tab 03/09/17 04/20/17 Rx metoprolol succinate ER 100 mg 100 mg PO DAILY tab 03/09/17 04/20/17 History tablet,extended release 24 hr tamsulosin 0.4 mg capsule 0.4 mg PO QHS #90 tab 03/09/17 04/20/17 Rx warfarin 3 mg tablet 3 mg PO ASDIR #30 tab 03/09/17 04/20/17 Rx hydrocodone 7.5 mg-acetaminophen 1 tab PO Q4-6H #60 tab 03/14/17 04/20/17 Rx 325 mg tablet atorvastatin 80 mg tablet 80 mg PO QHS #90 tab-cap 03/29/17 04/20/17 Rx albuterol sulfate 2.5 mg/3 mL 2.5 mg INH Q4-6H PRN 7 Days #180 ml 04/01/1704/20 Rx (0.083 %) solution for nebulization budesonide 0.5 mg/2 mL suspension 0.5 mg INH DAILY #90 ml 04/15/17 04/20/17 Rx for nebulization clindamycin 150 mg capsule 150 mg PO QID #12 cap 04/19/17 04/20/17 Rx Allergies/Adverse Reactions: Allergies 3 Allergy/AdvReac Type Severity Reaction Status Date / Time Penicillins Allergy Severe ANAPHLAXIS Verified 04/20/17 06:34 levofloxacin [Levofloxacin] Allergy Mild reticular Verified 04/20/17 06:34 rash on the trunk metoprolol succinate Allergy HIVES Verified 04/20/17 06:34 [From Toprol XL] sitagliptin phosphate AdvReac Mild diarrhea Verified 04/20/17 06:34 [From Januvia] and electrolyte abnormalities bee sting Allergy Severe ANAPHLAXIS Uncoded 04/20/17 06:34 HORSE SERUM Allergy Intermediate HIVES Uncoded 04/20/17 06:34 Review of Systems - Review of Systems All Systems: Reviewed & No Additional Complaints Except as Stated - Respiratory Respiratory: REPORTS: Cough - Cardiovascular Cardiovascular: DENIES: Negative System Review, Chest Pain, Edema, Syncope, Palpitations, Orthopnea, Paroxysmal Nocturnal Dyspnea, Other, See HPI - Gastrointestinal Gastrointestinal / Abdominal: DENIES: Negative System Review, Nausea, Vomiting, Diarrhea, Constipation, Abdominal Pain, Bloody Stool, Poor Appetite, Heartburn, Regurgitation, Bloating, Lactose Intolerance, Melena, Bright Red Blood per Rectum, Other, See HPI Exam - Vitals Vital Signs: Vital Signs Temperature 97.4 F Temperature Source Temporal Artery Scan Pulse Rate [Pulse Oximeter] 92 Pulse Rate 85 Respiratory Rate 20 Blood Pressure [Left Arm] 132/118 Blood Pressure [Right Arm] 127/117 Blood Pressure 155/81 Pulse Ox 93 Oxygen Flow Rate 4 Oxygen Delivery Method Nasal Cannula Height 5 ft 11 in Weight 195 lb 6 oz - General General Appearance: No Acute Distress, Cooperative - Head Head Exam: Normal Inspection, Normocephalic, Atraumatic - Neck Neck Exam: Normal Inspection, Full ROM, No Tenderness, No Lymphadenopathy, No Thyromegaly, JVP is not Raised - Respiratory Respiratory Exam: POSITIVE: Decreased Breath Sounds, Rales, Crackles, Wheezes - Cardiovascular Cardiovascular Exam: POSITIVE: RRR, No Murmur, No Clicks, No Gallops, No Rubs, PMI Non-Displaced - GI/Abdominal GI/Abdominal Exam: POSITIVE: Normal Bowel Sounds, Non Tender, Non Distended, Soft, No Masses, No Hepatomegaly, No Splenomegaly, No Organomegaly - Extremities Extremities Exam: POSITIVE: +2 Edema Results - Labs CBC and BMP: 04/20/17 00:04 04/20/17 00:04 Assessment and Plan - Patient Problems (1) COPD exacerbation Current Visit: Yes Status: Acute Comment: Continue antibiotic steroids and DuoNeb's no pneumonia Code(s): J44.1 - Chronic obstructive pulmonary disease with (acute) exacerbation (2) Elevated troponin Current Visit: Yes Status: Acute Comment: Now normal most likely little heart strain from congestive heart failure since he does have +2 edema I will check a BNP Code(s): R74.8 - Abnormal levels of other serum enzymes
[2017-04-20 13:19] LABS: VENOUS PH 7.34 (7.32-7.42)
[2017-04-20] MEDS: ALBUTEROL SULFATE 2.5 MG/3 ML NEB PRN ×2 (14:15→19:28)
[2017-04-20] MEDS: FUROSEMIDE 10 MG/1 ML - 2 ML VIAL IVP SCH (14:25)
[2017-04-20] MEDS ORDERED: Magnesium Sulfate 2gm (Premix) 2 GM/50 ML BAG IV ONE (15:06)
[2017-04-20] MEDS ORDERED: TAMSULOSIN 0.4 MG CAPSULE PO SCH (21:00)
[2017-04-20] MEDS ORDERED: ATORVASTATIN 40 MG TABLET PO SCH (21:00)
[2017-04-20] MEDS ORDERED: Mirtazapine Tab 15 MG TAB PO SCH (21:00)
[2017-04-20] MEDS ORDERED: GABAPENTIN 300 MG CAPSULE PO SCH (21:00)
--- NOTE | 2017-04-20 21:29 | DI ---
CT ANGIOGRAM OF THE CHEST, 04/20/2017 12:39 PM : Clinical History: Hypoxia. Previous Exam: 03/03/2014. Scans are performed from the base of the neck to the lower lung bases following IV administration of 75 mL of Isovue 300. Proprietary automated bolus tracking software was used to verify the timing of t he injection. The base of the neck and thoracic inlet are normal. There are no abnormal axillary, supraclavicular, mediastinal, or hilar nodes. The heart is normal. There are stents in the proximal half of the LAD an d in the proximal portion of the right coronary artery. There is mild pulmonary material hypertension without evidence of pulmonary embolism or pulmonary embolism with infarction. There is no acute infi ltrate or effusion or nodules. Small bullae are scattered throughout both lungs indicating bullous em physema. Both adrenal glands in the visualized portions of the liver, spleen, and pancreas are normal . READIN. There is no evidence of pulmonary embolism or pulmonary embolism with infarction. There is mild p ulmonary arterial hypertension. 2. Bullous emphysema. Coronary artery disease.
[2017-04-21] MEDS: ALBUTEROL SULFATE 2.5 MG/3 ML NEB PRN (01:24)
[2017-04-21] MEDS: methylPREDNISolone 125 MG/2 ML VIAL IVP SCH ×2 (01:30→06:00)
[2017-04-21 03:18] LABS: BASOPHILS # (AUTO) 0 10*3/UL; BASOPHILS % (AUTO) 0 % (0-1); EOSINOPHILS # (AUTO) 0 10*3/UL; EOSINOPHILS % (AUTO) 0 % (0-8); Hemoglobin [HGB] 11.1 g/dL (14.0-18.0); LYMPHOCYTES # (AUTO) 0.59 10*3/uL; MEAN CORPUSCULAR HEMOGLOBIN 32.8 PG (27-31); MEAN CORPUSCULAR HGB CONC 30.8 g/dL (33-37); MEAN CORPUSCULAR VOLUME 106.5 FL (80-90); MEAN PLATELET VOLUME 11.1 FL (7.4-12.2); MONOCYTES # (AUTO) 0.28 10*3/UL (0.3-0.8); MONOCYTES % (AUTO) 4.5 % (5-15); NEUTROPHILS # (AUTO) 5.29 10*3/UL; NEUTROPHILS % (AUTO) 85.7 % (50-80); RED BLOOD COUNT 3.38 10^6/uL (4.70-6.10)
[2017-04-21 03:31] LABS: BLOOD UREA NITROGEN 37 mg/dL (7-22); BUN/CREATININE RATIO 30.83 (6-20)
[2017-04-21 03:34] LABS: PLATELET MORPHOLOGY COMMENT NORMAL MORPHOLOGY (NORM); RBC MORPHOLOGY COMMENT NORMAL MORPHOLOGY (NORM); WBC MORPHOLOGY COMMENT NORMAL MORPHOLOGY (NORM)
[2017-04-21] MEDS: cefTRIAXone Inj 1 GM in Sodium Chloride 0.9% 100 ML IV SCH (04:12)
[2017-04-21] MEDS ORDERED: Sodium Chloride 0.9% 50 ML ONE (04:23)
[2017-04-21] MEDS: IPRATROPIUM/ALBUTEROL SULFATE 3 ML NEB NEB PRN ×4 (06:31→19:00)
[2017-04-21] MEDS: BUDESONIDE 0.5 MG/2 ML NEB SCH (06:35)
[2017-04-21] MEDS: FUROSEMIDE 10 MG/1 ML - 2 ML VIAL IVP SCH (07:17)
[2017-04-21] MEDS ORDERED: predniSONE Tab 20 MG TAB PO SCH (09:00)
[2017-04-21] MEDS: Multivitamin Tab 1 TAB PO SCH (09:32)
[2017-04-21] MEDS: ASPIRIN EC 81 MG TABLET PO SCH (09:32)
[2017-04-21] MEDS: LOSARTAN 50 MG TABLET PO SCH (09:32)
[2017-04-21] MEDS: METOPROLOL SUCCINATE 100 MG SR 24H TABLET PO SCH (09:32)
[2017-04-21] MEDS: DIGOXIN 125 MCG TABLET PO SCH (09:33)
[2017-04-21 10:06] LABS: VENOUS PH 7.23 (7.32-7.42)
[2017-04-21] MEDS ORDERED: ALBUTEROL SULFATE 2.5 MG/3 ML NEB PRN (10:06)
[2017-04-21] MEDS ORDERED: LIDOCAINE W/ SODIUM BICARB 0.5 ML SYR SUBD PRN (10:06)
[2017-04-21 10:56] LABS: ABG BASE EXCESS 8 MMOL/L (-2-2); ABG OXYGEN SATURATION 85 % (90-100); ABG PCO2 68 MMHG (34-38); ABG PH 7.31 (7.35-7.45); ABG PO2 56 MMHG (65-75); ALLEN TEST YES; COLLECTION SITE RIGHT RADIAL
--- NOTE | 2017-04-21 11:00 | PDOC(PROG) ---
Interval History: Patient was obtunded this morning ABG revealed elevation of his CO2 in the 80 range patient was transferred to ICU and BiPAP started repeat ABGs improved to the PCO2 in the 60s patient does have multiple comorbidities including a defibrillator pacemaker and coronary artery disease he is awake and less confused at present time Objective : Data - Labs CBC and BMP: 04/21/17 03:10 04/21/17 03:10 Objective : Exam - General General Appearance: Cooperative - Respiratory Respiratory Exam: Decreased Breath Sounds - Cardiovascular Cardiovascular Exam: RRR, No Murmur, No Clicks, No Gallops, No Rubs, PMI Non- Displaced - GI/Abdominal GI/Abdominal Exam: Normal Bowel Sounds, Non Tender, Non Distended, Soft, No Masses, No Hepatomegaly, No Splenomegaly, No Organomegaly - Extremities Extremities Exam: +2 Edema - Neurological Neurological Exam: Alert, Moves All Extremities Equally Assessment and Plan - Patient Problems (1) COPD exacerbation Current Visit: Yes Status: Acute Comment: Continue current therapy his lungs do sound better Code(s): J44.1 - Chronic obstructive pulmonary disease with (acute) exacerbation (2) Elevated troponin Current Visit: Yes Status: Acute Comment: Patient ultimately may need cardiac workup I recommended be done the [facility] where cardiology is available considering he has defibrillator and coronary artery disease-negative troches are present time he does have some congestive heart failure I did back off on the Lasix considering his BUN/creatinine is a little elevated Code(s): R74.8 - Abnormal levels of other serum enzymes (3) Respiratory failure with hypercapnia Current Visit: Yes Status: Acute Comment: We'll start BiPAP repeat gases in 30 minutes second gases improved. Gabapentin and Xanax Code(s): J96.92 - Respiratory failure, unspecified with hypercapnia
--- NOTE | 2017-04-21 14:25 | EKG ---
[address] [address] Measurements Intervals [place] Rate: 70 P: [place]: 0 QRS: -85 QRSD: 131 T: 112 QT: 435 QTc: 455 Interpretive Statements ATRIAL FLUTTER FIBRILLATION ELECTRONIC VENTRICULAR PACEMAKER ABNORMAL RHYTHM ECG Compared to ECG 04/20/2017 00:13:29 No significant changes Electronically Signed On 04-21-17 14:57:40 MST by Lui Lemons [email or web address]
[2017-04-21 14:55] LABS: ABG PCO2 59 MMHG (34-38); ABG PO2 64 MMHG (65-75)
[2017-04-21 14:56] LABS: ABG BASE EXCESS 11 MMOL/L (-2-2); ABG OXYGEN SATURATION 91 % (90-100); ALLEN TEST n
[2017-04-21] MEDS ORDERED: Mirtazapine Tab 15 MG TAB PO SCH (21:00)
[2017-04-21] MEDS ORDERED: Warfarin Tab 3 MG TAB PO SCH (21:00)
[2017-04-21] MEDS ORDERED: ATORVASTATIN 40 MG TABLET PO SCH (21:00)
[2017-04-21] MEDS ORDERED: TAMSULOSIN 0.4 MG CAPSULE PO SCH (21:00)
[2017-04-22] MEDS: NORMAL SALINE 10 ML SYRINGE FLUSH IVP PRN ×2 (03:18→09:20)
[2017-04-22] MEDS: IPRATROPIUM/ALBUTEROL SULFATE 3 ML NEB NEB PRN ×4 (06:43→19:01)
[2017-04-22] MEDS ORDERED: BUDESONIDE 0.5 MG/2 ML NEB SCH (07:00)
[2017-04-22 08:00] LABS: BASOPHILS # (AUTO) 0 10*3/UL; BASOPHILS % (AUTO) 0 % (0-1); EOSINOPHILS # (AUTO) 0.03 10*3/UL; EOSINOPHILS % (AUTO) 0.2 % (0-8); Hematocrit [HCT] 35.8 % (42.0-52.0); Hemoglobin [HGB] 11.1 g/dL (14.0-18.0); LYMPHOCYTES # (AUTO) 0.82 10*3/uL; MEAN CORPUSCULAR HEMOGLOBIN 33.1 PG (27-31); MEAN CORPUSCULAR VOLUME 106.9 FL (80-90); MEAN PLATELET VOLUME 11.7 FL (7.4-12.2); MONOCYTES # (AUTO) 2.12 10*3/UL (0.3-0.8); MONOCYTES % (AUTO) 15.8 % (5-15); NEUTROPHILS # (AUTO) 10.24 10*3/UL; NEUTROPHILS % (AUTO) 76.4 % (50-80); RED BLOOD COUNT 3.35 10^6/uL (4.70-6.10)
[2017-04-22 08:20] LABS: VENOUS PH 7.34 (7.32-7.42)
[2017-04-22 08:32] LABS: BLOOD UREA NITROGEN 41 mg/dL (7-22); BUN/CREATININE RATIO 37.27 (6-20); SERUM ALBUMIN 3.5 g/dL (3.5-4.8)
[2017-04-22] MEDS ORDERED: FUROSEMIDE 10 MG/1 ML - 4 ML IVP ONE (08:39)
[2017-04-22 08:47] LABS: PLATELET MORPHOLOGY COMMENT NORMAL MORPHOLOGY (NORM); RBC MORPHOLOGY COMMENT SEE COMMENTS (NORM); WBC MORPHOLOGY COMMENT NORMAL MORPHOLOGY (NORM)
[2017-04-22] MEDS ORDERED: LOSARTAN 50 MG TABLET PO SCH (09:00)
[2017-04-22] MEDS ORDERED: Multivitamin Tab 1 TAB PO SCH (09:00)
[2017-04-22] MEDS ORDERED: predniSONE Tab 20 MG TAB PO SCH (09:00)
[2017-04-22] MEDS ORDERED: METOPROLOL SUCCINATE 100 MG SR 24H TABLET PO SCH (09:00)
[2017-04-22] MEDS ORDERED: ASPIRIN EC 81 MG TABLET PO SCH (09:00)
[2017-04-22] MEDS ORDERED: DIGOXIN 125 MCG TABLET PO SCH (09:00)
[2017-04-22] MEDS ORDERED: AZITHROMYCIN 250 MG TABLET PO SCH (09:00)
[2017-04-22] MEDS ORDERED: LIDOCAINE W/ SODIUM BICARB 0.5 ML SYR SUBD PRN (14:45)
[2017-04-22] MEDS ORDERED: NORMAL SALINE 10 ML SYRINGE FLUSH IVP PRN (14:45)
[2017-04-22 20:03] LABS: VENOUS PCO2 48.3 mmHg (45-55); VENOUS PH 7.487 (7.32-7.42)
[2017-04-22] MEDS: ATORVASTATIN 40 MG TABLET PO SCH (20:22)
[2017-04-22] MEDS: TAMSULOSIN 0.4 MG CAPSULE PO SCH (20:22)
[2017-04-22] MEDS: Warfarin Tab 3 MG TAB PO SCH (20:22)
[2017-04-22] MEDS: Mirtazapine Tab 15 MG TAB PO SCH (20:23)
--- NOTE | 2017-04-22 20:25 | PDOC(PROG) ---
Interval History: Patient is much better didn't wear his BiPAP overnight he is awake and alert this morning I had a long meeting and discussion with the family daughter and about his end-stage emphysema I described to them with drawings what emphysema was patient understands I also discussed the case with pulmonary which were recommended to keep on doing what we are doing in regards to treatment. And see how the patient progresses over the next few days hopefully we can get him off his BiPAP. Patient did express to him he wanted to be DO NOT RESUSCITATE no intubation or CPR and to let nature take its course if he would stop breathing or his heart would stop. All family members in agreement Objective : Data - Labs CBC and BMP: 04/22/17 04:48 04/22/17 08:10 Objective : Exam - General General Appearance: No Acute Distress, Cooperative - Respiratory Respiratory Exam: Decreased Breath Sounds - Cardiovascular Cardiovascular Exam: RRR, No Murmur, No Clicks, No Gallops, No Rubs, PMI Non- Displaced - GI/Abdominal GI/Abdominal Exam: Normal Bowel Sounds, Non Tender, Non Distended, Soft, No Masses, No Hepatomegaly, No Splenomegaly, No Organomegaly - Extremities Extremities Exam: No Clubbing Present, No Edema Present, No Cyanosis Present Assessment and Plan - Patient Problems (1) COPD exacerbation Current Visit: Yes Status: Acute Code(s): J44.1 - Chronic obstructive pulmonary disease with (acute) exacerbation (2) Elevated troponin Current Visit: Yes Status: Acute Code(s): R74.8 - Abnormal levels of other serum enzymes (3) Respiratory failure with hypercapnia Current Visit: Yes Status: Acute Code(s): J96.92 - Respiratory failure, unspecified with hypercapnia - Assessment / Plan Additional Assessment/Plan Details: #1 severe emphysema with COPD exacerbation continue BiPAP dual nebs albuterol he did receive 3 days of antibiotics continue steroids prednisone 40 daily his latest blood gas tonight looked great. #2 coronary artery disease stable at present time continue usual medication
[2017-04-23] MEDS: ALBUTEROL SULFATE 2.5 MG/3 ML NEB PRN (00:07)
[2017-04-23 05:34] LABS: Hematocrit [HCT] 37.2 % (42.0-52.0); Hemoglobin [HGB] 11.4 g/dL (14.0-18.0); MEAN CORPUSCULAR HEMOGLOBIN 32.8 PG (27-31); MEAN CORPUSCULAR HGB CONC 30.6 g/dL (33-37); MEAN CORPUSCULAR VOLUME 106.9 FL (80-90); MEAN PLATELET VOLUME 10.7 FL (7.4-12.2); RED BLOOD COUNT 3.48 10^6/uL (4.70-6.10)
[2017-04-23 05:39] LABS: BLOOD UREA NITROGEN 37 mg/dL (7-22); SERUM ALBUMIN 3.5 g/dL (3.5-4.8)
[2017-04-23 06:08] LABS: PLATELET MORPHOLOGY COMMENT NORMAL MORPHOLOGY (NORM); RBC MORPHOLOGY COMMENT NORMAL MORPHOLOGY (NORM); WBC MORPHOLOGY COMMENT NORMAL MORPHOLOGY (NORM)
[2017-04-23 06:09] LABS: BAND NEUTROPHILS % 11 % (0-10); BASOPHILS % (MANUAL) 0 % (0-1); EOSINOPHILS % (MANUAL) 1 % (0-8); MONOCYTES % (MANUAL) 1 % (0-12); NEUTROPHILS % (MANUAL) 70 % (50-80)
[2017-04-23] MEDS: IPRATROPIUM/ALBUTEROL SULFATE 3 ML NEB NEB PRN ×5 (06:43→22:52)
[2017-04-23] MEDS: BUDESONIDE 0.5 MG/2 ML NEB SCH (06:43)
--- NOTE | 2017-04-23 08:27 | PDOC(PROG) ---
Interval History: Patient is doing much better today less short of breath at a decent night Objective : Data - Labs CBC and BMP: 04/23/17 05:15 04/23/17 05:15 Objective : Exam - General General Appearance: Cooperative - Respiratory Respiratory Exam: Decreased Breath Sounds - Cardiovascular Cardiovascular Exam: RRR, No Murmur, No Clicks, No Gallops, No Rubs, PMI Non- Displaced - Extremities Extremities Exam: No Clubbing Present, No Edema Present, No Cyanosis Present - Neurological Neurological Exam: Alert, Oriented x 3, Reflexes Normal, Normal Gait, CN II-XII Intact, No Facial Droop, Moves All Extremities Equally Assessment and Plan - Patient Problems (1) COPD exacerbation Current Visit: Yes Status: Acute Comment: Continue current treatment with the dual nebs intermittent BiPAP patient is improving but slowly continue steroids patient has no pneumonia did receive 3 days of Zithromax and ceftriaxone Code(s): J44.1 - Chronic obstructive pulmonary disease with (acute) exacerbation (2) Elevated troponin Current Visit: Yes Status: Acute Comment: Normal at present time most likely strain from his COPD exacerbation will ultimately need cardiac workup Code(s): R74.8 - Abnormal levels of other serum enzymes (3) Respiratory failure with hypercapnia Current Visit: Yes Status: Acute Comment: Improving gases last night or great we'll repeat one this morning Code(s): J96.92 - Respiratory failure, unspecified with hypercapnia
[2017-04-23] MEDS: DIGOXIN 125 MCG TABLET PO SCH (09:18)
[2017-04-23] MEDS: ASPIRIN EC 81 MG TABLET PO SCH (09:18)
[2017-04-23] MEDS: predniSONE Tab 20 MG TAB PO SCH (09:19)
[2017-04-23] MEDS: LOSARTAN 50 MG TABLET PO SCH (09:19)
[2017-04-23] MEDS: Multivitamin Tab 1 TAB PO SCH (09:19)
[2017-04-23] MEDS: METOPROLOL SUCCINATE 100 MG SR 24H TABLET PO SCH (09:19)
[2017-04-23 09:20] LABS: VENOUS PH 7.44 (7.32-7.42)
[2017-04-23] MEDS: Warfarin Tab 3 MG TAB PO SCH (20:02)
[2017-04-23] MEDS: ATORVASTATIN 40 MG TABLET PO SCH (20:02)
[2017-04-23] MEDS: TAMSULOSIN 0.4 MG CAPSULE PO SCH (20:03)
[2017-04-23] MEDS: Mirtazapine Tab 15 MG TAB PO SCH (20:03)
[2017-04-24 05:49] LABS: Hematocrit [HCT] 37.6 % (42.0-52.0); Hemoglobin [HGB] 11.5 g/dL (14.0-18.0); MEAN CORPUSCULAR HGB CONC 30.6 g/dL (33-37); MEAN CORPUSCULAR VOLUME 104.7 FL (80-90); MEAN PLATELET VOLUME 10.5 FL (7.4-12.2); RED BLOOD COUNT 3.59 10^6/uL (4.70-6.10)
[2017-04-24 06:05] LABS: BLOOD UREA NITROGEN 28 mg/dL (7-22); SERUM ALBUMIN 3.3 g/dL (3.5-4.8)
[2017-04-24 06:22] LABS: PLATELET MORPHOLOGY COMMENT NORMAL MORPHOLOGY (NORM); RBC MORPHOLOGY COMMENT NORMAL MORPHOLOGY (NORM); WBC MORPHOLOGY COMMENT NORMAL MORPHOLOGY (NORM)
[2017-04-24 06:23] LABS: BASOPHILS % (MANUAL) 0 % (0-1); EOSINOPHILS % (MANUAL) 0 % (0-8)
[2017-04-24 06:24] LABS: BAND NEUTROPHILS % 5 % (0-10); MONOCYTES % (MANUAL) 4 % (0-12); NEUTROPHILS % (MANUAL) 64 % (50-80)
[2017-04-24] MEDS: IPRATROPIUM/ALBUTEROL SULFATE 3 ML NEB NEB PRN ×3 (06:24→18:57)
[2017-04-24] MEDS: BUDESONIDE 0.5 MG/2 ML NEB SCH (07:15)
[2017-04-24] MEDS: Multivitamin Tab 1 TAB PO SCH (08:52)
[2017-04-24] MEDS: predniSONE Tab 20 MG TAB PO SCH (08:52)
[2017-04-24] MEDS: ASPIRIN EC 81 MG TABLET PO SCH (08:52)
[2017-04-24] MEDS: LOSARTAN 50 MG TABLET PO SCH (08:52)
[2017-04-24] MEDS: DIGOXIN 125 MCG TABLET PO SCH (08:52)
[2017-04-24] MEDS: METOPROLOL SUCCINATE 100 MG SR 24H TABLET PO SCH (08:52)
[2017-04-24] MEDS: ALBUTEROL SULFATE 2.5 MG/3 ML NEB PRN (09:43)
[2017-04-24] MEDS ORDERED: GUAIFENESIN 600 MG TABLET PO ONE (13:31)
--- NOTE | 2017-04-24 16:20 | PDOC(PROG) ---
Date and Time of Service: 04/24/2017, 1613 Interval History: no chest pain feels better than on admit significant desaturation with shower today. no nausea or vomiting. still requiring more oxygen than baseline of 2.5 LPM at home Objective : Data - Labs CBC and BMP: 04/24/17 05:18 04/24/17 05:18 Objective : Exam - General General Appearance: No Acute Distress, Cooperative Additional General Exam Details: Vital Signs - Last Taken Temperature 97.3 F 04/24/17 11:13 Pulse Rate 55 L 04/24/17 11:13 Respiratory Rate 16 04/24/17 14:55 Blood Pressure 124/54 04/24/17 11:13 Pulse Ox 89 04/24/17 11:13 - Head Head Exam: Normal Inspection, Normocephalic, Atraumatic - Eye Eye Exam: No Scleral Icterus - Respiratory Respiratory Exam: Breathing Non Labored, Decreased Breath Sounds, Coarse Breath Sounds - Cardiovascular Cardiovascular Exam: No Murmur, No Clicks, No Gallops, No Rubs, Bradycardia, No JVD - GI/Abdominal GI/Abdominal Exam: Normal Bowel Sounds, Non Tender, Non Distended, Soft - Extremities Extremities Exam: No Edema Present, No Cyanosis Present - Neurological Neurological Exam: Alert, Oriented x 3, No Facial Droop, Speech Intact / Clear, Moves All Extremities Equally Assessment and Plan - Patient Problems (1) COPD exacerbation Current Visit: Yes Status: Acute Code(s): J44.1 - Chronic obstructive pulmonary disease with (acute) exacerbation (2) Respiratory failure with hypercapnia Current Visit: Yes Status: Acute Code(s): J96.92 - Respiratory failure, unspecified with hypercapnia (3) CAD (coronary artery disease) Current Visit: Yes Status: Chronic Onset Date: 09/10/14 Code(s): I25.10 - Atherosclerotic heart disease of [place] coronary artery without angina pectoris Qualifiers: Coronary Disease-Associated Artery/Lesion type: [place] artery [place] vs. transplanted heart: [place] heart Associated angina: without angina Qualified Code(s): I25.10 - Atherosclerotic heart disease of [place] coronary artery without angina pectoris (4) Atrial fibrillation Current Visit: Yes Status: Chronic Onset Date: 12/01/10 Code(s): I48.91 - Unspecified atrial fibrillation Qualifiers: Atrial fibrillation type: chronic Qualified Code(s): I48.2 - Chronic atrial fibrillation - Assessment / Plan Additional Assessment/Plan Details: check PT and INR tomorrow I think zithromax for two more days would be reasonable for COPD exacerbation/ continue steroids would benefit from a LABA. on combivent and very reliant on that at home. I really think the patient might do well on spiriva and albuterol along with a LABA. we discussed code status, DNR. probably needs AICD function turned off. I spoke to the patient and his daughter about that BiPaP at night if tolerated would benefit from pulmonary rehab post hospital stay. not at point to justify daily antibiotics for exacerbation prevention, but end stage, so with recurrent infections, need to consider that option.
[2017-04-24] MEDS: AZITHROMYCIN 250 MG TABLET PO SCH (16:30)
[2017-04-24] MEDS: FLUTICASONE/SALMETEROL 100/50 UD INHALER INH SCH (18:59)
[2017-04-24] MEDS: ATORVASTATIN 40 MG TABLET PO SCH (20:36)
[2017-04-24] MEDS: Warfarin Tab 3 MG TAB PO SCH (20:36)
[2017-04-24] MEDS: GUAIFENESIN 600 MG TABLET PO SCH (20:36)
[2017-04-24] MEDS: TAMSULOSIN 0.4 MG CAPSULE PO SCH (20:36)
[2017-04-24] MEDS: Mirtazapine Tab 15 MG TAB PO SCH (20:36)
[2017-04-25] MEDS: IPRATROPIUM/ALBUTEROL SULFATE 3 ML NEB NEB PRN (06:43)
[2017-04-25] MEDS: BUDESONIDE 0.5 MG/2 ML NEB SCH (06:45)
[2017-04-25] MEDS: FLUTICASONE/SALMETEROL 100/50 UD INHALER INH SCH ×2 (06:46→19:06)
[2017-04-25] MEDS: AZITHROMYCIN 250 MG TABLET PO SCH (07:59)
[2017-04-25] MEDS: LOSARTAN 50 MG TABLET PO SCH (08:00)
[2017-04-25] MEDS: ASPIRIN EC 81 MG TABLET PO SCH (08:00)
[2017-04-25] MEDS: Multivitamin Tab 1 TAB PO SCH (08:00)
[2017-04-25] MEDS: METOPROLOL SUCCINATE 100 MG SR 24H TABLET PO SCH (08:00)
[2017-04-25] MEDS: GUAIFENESIN 600 MG TABLET PO SCH ×2 (08:00→20:35)
[2017-04-25] MEDS: DIGOXIN 125 MCG TABLET PO SCH (08:00)
[2017-04-25] MEDS: predniSONE Tab 20 MG TAB PO SCH (08:00)
[2017-04-25] MEDS: ALBUTEROL SULFATE 2.5 MG/3 ML NEB PRN ×3 (10:48→19:05)
[2017-04-25] MEDS ORDERED: TIOTROPIUM BROMIDE 18 MCG CAPSULE INH ONE (12:52)
--- NOTE | 2017-04-25 13:59 | PDOC(PROG) ---
Date and Time of Service: 04/25/2017, 1354 Interval History: No chest pain. Shortness of breath is chronic and persistent, cough is about the same. Patient feels very weak. Seen with his daughter who is his primary washroom operator at home, and they are concerned that the patient is weak and needs physical therapy for reconditioning. Seems to be tolerating BiPAP at night, but not as much during the day. Still desaturates significantly with activities. Objective : Data - Labs CBC and BMP: 04/24/17 05:18 04/24/17 05:18 Objective : Exam - General General Appearance: No Acute Distress, Cooperative Additional General Exam Details: Vital Signs - Last Taken Temperature 97.6 F 04/25/17 11:17 Pulse Rate 65 04/25/17 11:17 Respiratory Rate 18 04/25/17 11:17 Blood Pressure 148/82 04/25/17 11:17 Pulse Ox 94 04/25/17 11:17 - Eye Eye Exam: No Scleral Icterus - ENT ENT Exam: Mucous Membranes Moist - Respiratory Respiratory Exam: Breathing Non Labored, Decreased Breath Sounds, Coarse Breath Sounds - Cardiovascular Cardiovascular Exam: RRR, No Murmur, No Clicks, No Gallops, No Rubs, No JVD - GI/Abdominal GI/Abdominal Exam: Normal Bowel Sounds, Non Tender, Non Distended, Soft - Extremities Extremities Exam: No Edema Present, No Cyanosis Present - Neurological Neurological Exam: Alert, Oriented x 3, No Facial Droop, Speech Intact / Clear, Moves All Extremities Equally Additional Neurological Exam Details: Sitting upright and eating lunch on my examination today. Assessment and Plan - Patient Problems (1) COPD exacerbation Current Visit: Yes Status: Acute Code(s): J44.1 - Chronic obstructive pulmonary disease with (acute) exacerbation (2) Respiratory failure with hypercapnia Current Visit: Yes Status: Acute Code(s): J96.92 - Respiratory failure, unspecified with hypercapnia (3) CAD (coronary artery disease) Current Visit: Yes Status: Chronic Onset Date: 09/10/14 Code(s): I25.10 - Atherosclerotic heart disease of [place] coronary artery without angina pectoris Qualifiers: Coronary Disease-Associated Artery/Lesion type: [place] artery [place] vs. transplanted heart: [place] heart Associated angina: without angina Qualified Code(s): I25.10 - Atherosclerotic heart disease of [place] coronary artery without angina pectoris (4) Atrial fibrillation Current Visit: Yes Status: Chronic Onset Date: 12/01/10 Code(s): I48.91 - Unspecified atrial fibrillation Qualifiers: Atrial fibrillation type: chronic Qualified Code(s): I48.2 - Chronic atrial fibrillation (5) Generalized weakness Current Visit: Yes Status: Acute Code(s): R53.1 - Weakness - Assessment / Plan Additional Assessment/Plan Details: Continue Zithromax, steroids but start to taper dose of steroids, and pulmonary toilet. In terms of pulmonary medications, stop DuoNeb's. Also stop Pulmicort. Recent data shows/guidelines show LAMA and LABA is generally best for end-stage COPD patients in terms of respiratory symptoms. Therefore, start Spiriva in addition to Advair with the Serevent. I did explain that Advair, with inhaled corticosteroid, may slightly increased risk of pneumonia. I think that risk is worth the benefits of the respiratory medications. We will use albuterol nebulizers as a rescue medication. Physical therapy and occupational therapy. Patient's daughter was quite concerned that the patient would need another day of full therapy in the hospital and hopefully would be ready for discharge by Tuesday. We will make arrangements and write prescription for BiPAP therapy at home which I think he should have at night for his chronic hypercapnic respiratory failure which seems to be getting worse from the past.
[2017-04-25] MEDS: ATORVASTATIN 40 MG TABLET PO SCH (20:34)
[2017-04-25] MEDS: TAMSULOSIN 0.4 MG CAPSULE PO SCH (20:35)
[2017-04-25] MEDS: Mirtazapine Tab 15 MG TAB PO SCH (20:35)
[2017-04-25] MEDS: Warfarin Tab 3 MG TAB PO SCH (20:35)
[2017-04-26] MEDS: ALBUTEROL SULFATE 2.5 MG/3 ML NEB PRN ×4 (06:48→19:04)
[2017-04-26] MEDS: TIOTROPIUM BROMIDE 18 MCG CAPSULE INH SCH (06:50)
[2017-04-26] MEDS: FLUTICASONE/SALMETEROL 100/50 UD INHALER INH SCH ×2 (06:50→19:06)
[2017-04-26] MEDS: AZITHROMYCIN 250 MG TABLET PO SCH (08:11)
[2017-04-26] MEDS: METOPROLOL SUCCINATE 100 MG SR 24H TABLET PO SCH (08:11)
[2017-04-26] MEDS: ASPIRIN EC 81 MG TABLET PO SCH (08:11)
[2017-04-26] MEDS: GUAIFENESIN 600 MG TABLET PO SCH ×2 (08:11→20:01)
[2017-04-26] MEDS: LOSARTAN 50 MG TABLET PO SCH (08:12)
[2017-04-26] MEDS: Multivitamin Tab 1 TAB PO SCH (08:12)
[2017-04-26] MEDS: predniSONE Tab 20 MG TAB PO SCH (08:12)
[2017-04-26] MEDS: DIGOXIN 125 MCG TABLET PO SCH (08:12)
--- NOTE | 2017-04-26 10:01 | PTI REPORT ---
Thank you for the referral of Mushtaq Dixon. He was seen on 04/25/17 for an inpatient evaluation secondary to weakness and dyspnea. SUBJECTIVE: The patient is an 81-year-old male. The patient reports that he lives with his in a house that doesn't have any stairs. He is on 2.5 liters of oxygen at home. The patient reports that he gets short of breath at times. The patient states he doesn't use a walker. The patient was previously independent with community activities, but doesn't do any of the cooking, cleaning, or shopping; his does all of that. PAST MEDICAL HISTORY: Past medical history can be found in the patient's medical record. OBJECTIVE FINDINGS: General observations: The patient was seen supine with head of bed elevated over 30 degrees. The patient was on 2.5 liters of oxygen. The patient's oxygen saturation while seated was 90%. Oxygen saturation was 92% upon standing. Bed mobility: The patient was independent with supine to sit transfer with head of bed elevated with guard rail. Transfers: The patient required contact guard assist for sit to stand transfer from the bed. The patient demonstrated difficulty. Balance: The patient was able to stand with narrow base of support with eyes open x30 seconds. The patient was able to tolerate moderate perturbations with narrow base of support x3. The patient was unable to maintain balance with narrow base of support and eyes closed. He required mod assist x1 for balance re-correction. Ambulation: The patient required hand hold assist x1 for ambulating in a [place]. The patient's gait was assessed. The patient demonstrated lateral sway with gait and it is recommended that he uses a walker until he regains some functional mobility and stability. ASSESSMENT: The patient is an 81-year-old male that presents with weakness and shortness of breath. The patient will benefit from skilled therapy in order to improve functional mobility and energy conservation. The patient's prognosis for therapy is fair. Problem List: Decreased balance Decreased functional mobility Decreased strength Short-Term Goals: To be met by discharge from inpatient: Patient will be independent with all transfers. Patient will be able to ambulate 300 feet independently with least restrictive assistive device. Patient will be able to tolerate 10 minutes of activity. Long-Term Goals: To be met following discharge from inpatient: Patient will be able to return home per prior level of function. TREATMENT PLAN: Patient will be seen B.I.D during the week and one time per day over the weekend as an inpatient for therapeutic exercises, functional activities, gait training, and neuromuscular reeducation. INITIAL TREATMENT: Treatment today consisted of the initial evaluation. The patient was instructed to perform long arc quads x20 and seated marches x20 with constant oxygen saturation monitoring. The patient was instructed to ambulate around the nurse's station x1, approximately 150 feet with front wheeled walker in order to promote energy conservation with constant oxygen saturation monitoring. The patient's oxygen saturation reached 88% at lowest. The patient returned to the chair in his room. It was recommended that he look into getting a four wheeled walker for added stability and to help him conserve some more energy when ambulating community distances. The patient was left in chair with chair alarm activated and call light within reach. NICHOLAS
--- NOTE | 2017-04-26 10:03 | PT.PROG ---
Progress Note Progress Note: S. Patient stated that he is feeling better this morning however is a little tired. O. Patient ambulated 175 feet to the therapy gym then performed seated exercises in the form of; long arc quads, ball squeezes, clam shells all x 10 bilaterally and sit to stands x 5. Patient then ambulated 175 feet back to his room with front wheeled walker and was left in bed with alarm and call light. A. Patient was focusing on energy conservation today and required frequent rest breaks to recover, he would continue to benefit from skilled therapy to increase endurance and mobility. He was able to complete all exercises with no complaints of pain just fatigue and shortness of breath. P. Continue POC.
--- NOTE | 2017-04-26 10:20 | OTI REPORT ---
Thank you for the referral of Mushtaq Dixon. He was seen on 04/25/17 for an occupational therapy inpatient evaluation secondary to weakness and dyspnea. SUBJECTIVE: The patient is an 81-year-old male who was admitted to the hospital on 04/20/17 due to COPD exacerbation. The patient reports that he is feeling okay this afternoon. He reports that he was on 2.5 liters of oxygen at home and he is currently on 2.5 liters at rest at the hospital; however, he reports that Dr. Wolfe told him with exercise he should move to 5 liters. The patient does report that he has a defibrillator and a pacemaker. He reports that he has neuropathy in both hands and feet that impair his balance. He does report that when he closes his eyes he is dizzy at times. The patient reports that he lives in [place], [place] and he has one dog. The patient is not currently driving per his daughter's suggestion. The patient has three daughters that live in [place] who are able to help with some tasks. The patient lives in a single story home. He uses the garage entrance which has no stairs. The front entrance has four to five stairs with two handrails. There are no steps within the home. The patient does not use an assistive device to ambulate within the home. Bathroom set up includes a walk-in shower with a shower chair; however, the patient reports that he usually does not use the shower chair. The patient has comfort height toilets within the home. The patient reports that he is independent with all ADLs including lower extremity/upper extremity dressing, showering, eating, etc. He states his and daughters help him with iADLs including laundry, cooking, cleaning, and grocery shopping. The patient does have some assistance within the home including his spouse; however, she has COPD as well and her health is not spectacular. The patient would like to discharge to home. PAST MEDICAL HISTORY: Past medical history can be found in the patient's medical record. OBJECTIVE FINDINGS: General observations: The patient was oriented to person, place, date, and reason for hospitalization. He is able to follow conversations. His vision is fair; he is able to read news print. The patient does have some hearing issues ; he reports he does have hearing aides; however, he does not use them on a daily basis due to issues with them. Range of motion: The patient demonstrated upper extremity range of motion for the shoulder, elbow, hand, and wrist within functional limits. Strength: Upper extremity strength for the shoulders is 3+/5. Upper extremity strength for the elbows, hands, and wrists is 4/5 bilaterally. Bed mobility: The patient demonstrated the ability to move from supine in bed to sitting edge of bed. Transfers: The patient performed a sit to stand transfer with stand by assist only. Ambulation: The patient was able to ambulate a short distance (10 feet) with contact guard assist. The patient was instructed in the use of pursed lipped breathing techniques as well as energy conservation techniques to use on a daily basis. Activities of daily living: The patient demonstrated the ability to perform lower extremity dressing tasks with set up assistance. ASSESSMENT: Problem List: Limited activity tolerance Decreased upper extremity strength Decreased ability to complete entire ADL routine including showering Short-Term Goals: To be met by discharge from inpatient: Patient will be able to complete showering task with rest breaks as needed with contact guard assistance only. Patient will increase activity tolerance to be able to perform 10 minutes of continuous activity before requiring a rest break. Patient will increase bilateral upper extremity strength by one manual muscle grade. Patient will be independent in the use of pursed lipped breathing techniques and energy conservation techniques during functional mobility or exercise. Patient will be able to complete dressing tasks with no rest breaks using energy conservation techniques and pursed lipped breathing. Long-Term Goals: To be met following discharge from inpatient: Patient will be discharged to home at prior level of function with the use of energy conservation techniques as needed. TREATMENT PLAN: Patient will be seen B.I.D during the week and one time per day over the weekend as an inpatient to address the above goals and objectives. INITIAL TREATMENT: Treatment today consisted of the initial evaluation followed by the patient performing bed mobility tasks, functional mobility including sit to stands and ambulating a short distance, and lower extremity dressing including donning socks bilaterally. NICHOLAS
[2017-04-26 14:39] LABS: VENOUS PH 7.46 (7.32-7.42)
--- NOTE | 2017-04-26 16:00 | OT AM DAY ---
Diagnosis : Weakness AM - Occupational Therapy S: The patient reports he still gets very short of breath and he has had quite a few attacks every other month as he [place] have a build up of C02; he states he usually ends up in the emergency room. O: Today we worked on energy conservation techniques; the patient was given two handouts that really explained what energy conservation is, why it is needed , and who would benefit from it. The patient stated that he fit all of those descriptions. We worked on breathing techniques, rest periods, activity planning, avoiding extreme temperatures, and we discussed how he can conserve energy with functional activities throughout the day. Areas that were of interest were highlighted. Today we worked on ADLs, working on his pursed lipped breathing and breathing in through the nose and breathing out of pursed lips x4 seconds through strenuous activities. Today the patient demonstrated being able to dress his lower extremities with stand by assist and was able to don and doff his socks independently. Today the patient was able to complete toileting activities with contact guard assist. Down in therapy we worked on pursed lipped breathing with nice and slow controlled technique. Focusing mainly on the energy conservation of exercise, we worked on red theraband resisted shoulder extension, rows, and biceps curls. A: The patient definitely needed instruction on how to complete pursed lipped breathing. He did have some coughing spells with the pursed liped breathing, he states it is opposite of what he is used to. With repetition and practice, hopefully he can improve in this area. P: Continue seeing patient BID during the week and one time per day over the weekend for upper extremity strengthening, ADLs, and overall functional mobility. NICHOLAS
--- NOTE | 2017-04-26 16:34 | OT PM DAY ---
Diagnosis : Weakness/Dyspnea PM - Occupational Therapy S: The patient reports he is doing well. He states he is still having some breathing difficulties. O: We did increase the patient's oxygen to four liters during exercise and the patient did maintain oxygen saturation above 90% during today's session. Today we highly emphasized pursed lipped breathing, in through the nose x2 seconds and out the mouth x4 seconds. The patient performed upper body ergometer x3 minutes forward and 3 minutes backward with a one minute rest break in between. The patient then performed wall pulleys for shoulder extension, rows, biceps curls, and internal/external rotation x10 repetitions each. The patient was completing functional transfers with use of a wheeled walker with stand by to contact guard assist for balance. A: The patient participated well. He definitely benefits from pursed lipped breathing and slowing down and working on his functional abilities in order to continue and finish tasks. P: Continue seeing patient BID during the week and one time per day over the weekend for upper extremity strengthening, ADLs, and overall functional mobility. NICHOLAS
--- NOTE | 2017-04-26 16:47 | PDOC(PROG) ---
Date and Time of Service: 04/26/2017, 1640 Interval History: No chest pain. Shortness of breath at rest is improving. He has a little complaints of possible thrush and we started him on some nystatin. Ventilatory support at night does decrease work of breathing, but seems to improve his work of breathing during the day as well. He has had a progressive worsening of shortness of breath at rest and at activity levels of low endurance at home prior to this hospital stay. Objective : Data - Labs CBC and BMP: 04/24/17 05:18 04/24/17 05:18 Additional Lab Results: 04/26/17 04/26/17 04:51 14:34 PT 25.7 H INR 2.40 VBG pH 7.46 H VBG pCO2 42 L VBG HCO3 29 H VBG Base Excess 5 H Objective : Exam - General General Appearance: No Acute Distress, Cooperative Additional General Exam Details: Vital Signs - Last Taken Temperature 97.6 F 04/26/17 16:24 Pulse Rate 79 04/26/17 16:24 Respiratory Rate 18 04/26/17 16:24 Blood Pressure 148/58 04/26/17 16:24 Pulse Ox 91 04/26/17 16:24 - Head Head Exam: Normal Inspection, Normocephalic, Atraumatic - Eye Eye Exam: No Scleral Icterus - ENT ENT Exam: Mucous Membranes Moist - Respiratory Respiratory Exam: Breathing Non Labored, Decreased Breath Sounds, Wheezes, Coarse Breath Sounds - Cardiovascular Cardiovascular Exam: RRR, No Murmur, No Clicks, No Gallops, No Rubs, No JVD - GI/Abdominal GI/Abdominal Exam: Normal Bowel Sounds, Non Tender, Non Distended, Soft - Extremities Extremities Exam: No Edema Present, No Cyanosis Present - Neurological Neurological Exam: Alert, Oriented x 3, Normal Gait, No Facial Droop, Speech Intact / Clear, Moves All Extremities Equally Assessment and Plan - Patient Problems (1) COPD exacerbation Current Visit: Yes Status: Acute Code(s): J44.1 - Chronic obstructive pulmonary disease with (acute) exacerbation (2) Respiratory failure with hypercapnia Current Visit: Yes Status: Acute Code(s): J96.92 - Respiratory failure, unspecified with hypercapnia (3) CAD (coronary artery disease) Current Visit: Yes Status: Chronic Onset Date: 09/10/14 Code(s): I25.10 - Atherosclerotic heart disease of [place] coronary artery without angina pectoris Qualifiers: Coronary Disease-Associated Artery/Lesion type: [place] artery [place] vs. transplanted heart: [place] heart Associated angina: without angina Qualified Code(s): I25.10 - Atherosclerotic heart disease of [place] coronary artery without angina pectoris (4) Atrial fibrillation Current Visit: Yes Status: Chronic Onset Date: 12/01/10 Code(s): I48.91 - Unspecified atrial fibrillation Qualifiers: Atrial fibrillation type: chronic Qualified Code(s): I48.2 - Chronic atrial fibrillation (5) Generalized weakness Current Visit: Yes Status: Acute Code(s): R53.1 - Weakness - Assessment / Plan Additional Assessment/Plan Details: Overall, I think a ventilator at nighttime due to the severity of chronic hypercapnic respiratory failure in the setting of end-stage, stage IV, COPD, would reduce this patient's overall work of breathing, increased his maximum inspiratory pressures, improve his quality of life scores and daytime gas exchange, may very well increase the patient's exercise tolerance and ability to do activities without severe shortness of breath, and likely may prevent hospital stays. However I do not think this can be provided by BiPAP. It is clear with the PA CO2 in the 70s to 80s range, that nasal cannula oxygen is not sufficient to prevent worsening hypercapnia in this patient. The patient meets guidelines for noninvasive ventilation in severe stable COPD with his PaCO2 greater than 55 mmHg, hospital stay, and hypoxia upon admission. A [facility] noninvasive ventilator may be sufficient to provide for the patient's respiratory needs discussed above. Lower steroid dose. Antibiotics 1 more day Physical therapy today and in a.m. Home tomorrow most likely.
--- NOTE | 2017-04-26 17:04 | PT.PROG ---
Progress Note Progress Note: S. Patient stated that he is feeling a little better this afternoon. O. Patient ambulated 175 feet to the therapy gym where he performed seated exercises in the form of; ball squeezes, clam shells, resisted knee flexion, long arc quads, marches, heel toe raises all x 15 bilaterally. Sit to stands x 5 , Patient ambulated 175 feet back to his room where he was left in bed with alarm and call light. A. Patient tolerated therapy fair, he continues to struggle with weakness and balance, He would continue to benefit from skilled therapy to increase strength , mobility and endurance. P. Continue POC.
[2017-04-26] MEDS: NYSTATIN 100000 UNIT/1 ML - 5 ML UD CUP PO SCH ×2 (19:20→20:01)
[2017-04-26] MEDS: TAMSULOSIN 0.4 MG CAPSULE PO SCH (20:02)
[2017-04-26] MEDS: ATORVASTATIN 40 MG TABLET PO SCH (20:02)
[2017-04-26] MEDS: Warfarin Tab 3 MG TAB PO SCH (20:02)
[2017-04-26] MEDS: Mirtazapine Tab 15 MG TAB PO SCH (20:02)
[2017-04-27] MEDS: ALBUTEROL SULFATE 2.5 MG/3 ML NEB PRN ×2 (06:55→10:55)
[2017-04-27] MEDS: TIOTROPIUM BROMIDE 18 MCG CAPSULE INH SCH (06:58)
[2017-04-27] MEDS: FLUTICASONE/SALMETEROL 100/50 UD INHALER INH SCH (06:58)
[2017-04-27] MEDS: GUAIFENESIN 600 MG TABLET PO SCH (08:26)
[2017-04-27] MEDS: Multivitamin Tab 1 TAB PO SCH (08:27)
[2017-04-27] MEDS: LOSARTAN 50 MG TABLET PO SCH (08:27)
[2017-04-27] MEDS: predniSONE Tab 20 MG TAB PO SCH (08:28)
[2017-04-27] MEDS: METOPROLOL SUCCINATE 100 MG SR 24H TABLET PO SCH (08:29)
[2017-04-27] MEDS: DIGOXIN 125 MCG TABLET PO SCH (08:30)
[2017-04-27] MEDS: AZITHROMYCIN 250 MG TABLET PO SCH (08:31)
[2017-04-27] MEDS: ASPIRIN EC 81 MG TABLET PO SCH (08:31)
[2017-04-27] MEDS: NYSTATIN 100000 UNIT/1 ML - 5 ML UD CUP PO SCH ×2 (08:32→13:23)
--- NOTE | 2017-04-27 12:07 | OT.PROG ---
Progress Note Progress Note: S: pt appears to be in good spirits. O: pt was seen in therapy after being transferred down by PT.He completed UE exercises with RTB to maintain/increase strength to enhance ability to complete postural transitions. All exercises he completed were x15 with BUE's. A: pt may continue to benefit from therapy to increase activity tolerance. P: continue per POC.
[2017-04-27 13:26] VITALS: BP 148/71; RESP 18; TEMP 97.8; O2SAT 93
--- NOTE | 2017-04-27 14:16 | DCSUMMARY ---
Hospitalization Summary Admit Date: 04/20/2017 Discharge Date: 04/27/17 Primary Diagnosis:: COPD exacerbation Secondary Diagnosis:: Chronic hypercapnic respiratory failure with acute hypercapnic respiratory failure resolved Hospital Course: This very pleasant 81-year-old male that came in with shortness of breath symptoms sine was found to have a COPD exacerbation. He is quite hypercapnic and required BiPAP therapy through the majority of the hospital stay. We were able to wean the BiPAP off, but used it at nighttime to continue to drive the CO2 down. The patient remained afebrile. But he was weak. We did do therapy the patient's strength and endurance did improve through the hospital stay. He was treated with Zithromax and Rocephin for his COPD exacerbation along with steroids. They were stopped at discharge. Based on recent COPD Gold guidelines and more clinical information that LAMA and LABA therapy helps improve overall symptomatic and [id number] scores, we have changed some of the patient's inhalers to include Spiriva and Advair. There is a slight increased risk of pneumonia with Advair and I discussed that with the patient so he knows. As we introduce Spiriva and Advair during the hospital stay, the patient's physical endurance did improve, and 2 days of physical therapy really helped the patient overall. Patient's other medical problems did not cause problems here. Today, he has no complaints of chest pain. Shortness breath is better. He has no fevers. No nausea or vomiting. He is ready to go home. Assessment and Plan: 1. As per discharge assessments noted 2. Disposition: Patient is discharged home. 3. Condition on discharge, stable and improved. 4. Diet: regular diet 5. Activities: Gradually resume normal activities, I would highly recommend increasing oxygen to 5 L with activities. Consider pulmonary rehabilitation at [facility] 6. Follow-Up: 1. Dr. Reyna next week. 2. 7. Medications at the Time of Discharge: Home Medications Medication Instructions Recorded Confirmed Type Blood Sugar Diagnostic [Freestyle 1 strip MC DAILY #90 strip 09/28/13 04/20/17 History Lite Test Strips] Multivitamin with Minerals [One 1 tab PO DAILY 07/06/14 04/20/17 History Daily Complete] mirtazapine 15 mg tablet 15 mg PO QHS #30 tab-cap 11/07/17 01/17/18 Rx aspirin 81 mg tablet,delayed 81 mg PO QD tab 03/09/17 04/20/17 History release digoxin 125 mcg tablet 125 mcg PO DAILY #0 tab 03/09/17 04/20/17 Rx gabapentin 300 mg capsule 1,200 mg PO QHS cap 03/09/17 04/20/17 History losartan 50 mg tablet 50 mg PO QD #30 tab 03/09/17 04/20/17 Rx metoprolol succinate ER 100 mg 100 mg PO DAILY tab 03/09/17 04/20/17 History tablet,extended release 24 hr tamsulosin 0.4 mg capsule 0.4 mg PO QHS #90 tab 03/09/17 04/20/17 Rx warfarin 3 mg tablet 3 mg PO ASDIR #30 tab 03/09/17 04/20/17 Rx atorvastatin 80 mg tablet 80 mg PO QHS #90 tab-cap 03/29/17 04/20/17 Rx Albuterol Neb Soln 0.083% 2.5 mg NEB RTQ2H PRN #120 vial.neb 04/27/17 Rx Flutica/Salmet 100/50 Inhaler 1 puff INH RTBID #1 inhaler 04/27/17 Rx [Advair Diskus 100/50 Inhaler] Nystatin Susp [Mycostatin Susp] 500,000 unit PO QID #1 cp 04/27/17 Rx Tiotropium Inhalation Cap 18 mcg INH RTDAILY #1 inhaler 04/27/17 Rx [Spiriva Inhalation Cap] guaiFENesin ER Tab [Mucinex ER 1,200 mg PO BID #60 tab 04/27/17 Rx Tab] 8. Time, care, counseling and coordination of care for this discharge is greater than 30 minutes. Exam - Vitals Vital Signs: Vital Signs Temperature 97.8 F Temperature Source Temporal Artery Scan Pulse Rate [Telemetry] 80 Pulse Rate [Apical] 76 Pulse Rate [Pulse Oximeter] 67 Pulse Rate 68 Respiratory Rate 18 Blood Pressure [Left Arm] 148/71 Blood Pressure [Right Arm] 157/81 Blood Pressure 155/81 Pulse Ox 93 Oxygen Flow Rate 2.5 Oxygen Delivery Method Room Air Height 5 ft 11 in Weight 189 lb - General General Appearance: No Acute Distress, Cooperative - Eye Eye Exam: POSITIVE: No Scleral Icterus - ENT ENT Exam: POSITIVE: Mucous Membranes Moist - Respiratory Respiratory Exam: POSITIVE: Breathing Non Labored, Coarse Breath Sounds - Cardiovascular Cardiovascular Exam: POSITIVE: RRR, No Murmur, No Clicks, No Gallops, No Rubs, No JVD - GI/Abdominal GI/Abdominal Exam: POSITIVE: Normal Bowel Sounds, Non Tender, Non Distended, Soft - Extremities Extremities Exam: POSITIVE: No Edema Present, No Cyanosis Present, Clubbing Present (In the digits.) - Neurological Neurological Exam: POSITIVE: Alert, Oriented x 3, No Facial Droop, Speech Intact / Clear, Moves All Extremities Equally - Psychiatric Psychiatric Exam: POSITIVE: Normal Affect, Normal Mood Data Peritnent Studies: 04/24/17 04/24/17 04/26/17 05:18 05:18 14:34 WBC 8.03 RBC 3.59 L Hgb 11.5 L Hct 37.6 L MCV 104.7 H MCH 32.0 H MCHC 30.6 L RDW Std Deviation 43.5 RDW Coeff of Ellen 11.7 Plt Count 108 L MPV 10.5 Neutrophils % (Manual) 64 Band Neutrophils % 5 PT INR VBG pH 7.46 H VBG pCO2 42 L VBG HCO3 29 H VBG Base Excess 5 H Sodium 147 H Potassium 4.0 Chloride 101 Carbon Dioxide 37 H Anion Gap 9 BUN 28 H Creatinine 1.0 BUN/Creatinine Ratio 28.00 H Glucose 102 Calculated Osmolality 309.0 H Calcium 8.4 L Total Bilirubin 0.6 AST 23 ALT 41 Alkaline Phosphatase 61 Total Protein 5.8 L Albumin 3.3 L Globulin 2.5 04/27/17 04:49 WBC RBC Hgb Hct MCV MCH MCHC RDW Std Deviation RDW Coeff of Ellen Plt Count MPV Neutrophils % (Manual) Band Neutrophils % PT 23.3 H INR 2.18 VBG pH VBG pCO2 VBG HCO3 VBG Base Excess Sodium Potassium Chloride Carbon Dioxide Anion Gap BUN Creatinine BUN/Creatinine Ratio Glucose Calculated Osmolality Calcium Total Bilirubin AST ALT Alkaline Phosphatase Total Protein Albumin Globulin [address] [place] [address] PH: DD: [phone] FAX: [phone] ~DIAGNOSTIC IMAGING REPORT~ Patient: CROW PIRES : 1935 Sex: M Age: 81 Exam Name: CT CTA Chest Non-Coronary [facility] Exam Date: 04/20/17 Report # : [id number] CPT Code: 61081 EMR/MR #: [id number] Ordering: BINH PATTERSON Admiting: BINH PATTERSON MD. Primary: Mackenzie Reyna MD Attending: BINH PATTERSON MD. Signed CT ANGIOGRAM OF THE CHEST, 04/20/2017 12:39 PM : Clinical History: Hypoxia. Previous Exam: 03/03/2014. Scans are performed from the base of the neck to the lower lung bases following IV administration of 75 mL of Isovue 300. Proprietary automated bolus tracking software was used to verify the timing of the injection. The base of the neck and thoracic inlet are normal. There are no abnormal axillary, supraclavicular, mediastinal, or hilar nodes. The heart is normal. There are stents in the proximal half of the LAD and in the proximal portion of the right coronary artery. There is mild pulmonary material hypertension without evidence of pulmonary embolism or pulmonary embolism with infarction. There is no acute infiltrate or effusion or nodules. Small bullae are scattered throughout both lungs indicating bullous emphysema. Both adrenal glands in the visualized portions of the liver, spleen, and pancreas are normal. READIN. There is no evidence of pulmonary embolism or pulmonary embolism with infarction. There is mild pulmonary arterial hypertension. 2. Bullous emphysema. Coronary artery disease. Dictated By: 04/20/172116 CHRISTIANO DOWNING MD. Signed By: 04/20/172128 CHRISTIANO DOWNING MD. Patient Problems - Patient Problem List (1) COPD exacerbation Current Visit: Yes Status: Acute Code(s): J44.1 - Chronic obstructive pulmonary disease with (acute) exacerbation Category: Medical (2) Respiratory failure with hypercapnia Current Visit: Yes Status: Acute Code(s): J96.92 - Respiratory failure, unspecified with hypercapnia Category: Medical (3) CAD (coronary artery disease) Current Visit: Yes Status: Chronic Onset Date: 09/10/14 Code(s): I25.10 - Atherosclerotic heart disease of [place] coronary artery without angina pectoris Qualifiers: Coronary Disease-Associated Artery/Lesion type: [place] artery [place] vs. transplanted heart: [place] heart Associated angina: without angina Qualified Code(s): I25.10 - Atherosclerotic heart disease of [place] coronary artery without angina pectoris Category: Medical (4) Atrial fibrillation Current Visit: Yes Status: Chronic Onset Date: 12/01/10 Code(s): I48.91 - Unspecified atrial fibrillation Qualifiers: Atrial fibrillation type: chronic Qualified Code(s): I48.2 - Chronic atrial fibrillation Category: Medical (5) Generalized weakness Current Visit: Yes Status: Acute Code(s): R53.1 - Weakness Category: Medical
--- NOTE | 2017-04-27 14:40 | PT.PROG ---
Progress Note Progress Note: S. Patient stated that he is feeling better today. O. Patient ambulated 175 feet to the therapy gym where he performed seated exercises in the form of; long arc quads, ball squeezes, clam shells, resisted knee flexion, marches, sit to stands all x 15 bilaterally. Patient ambulated 175 feet back to his room where he was left in his chair with alarm and call light. A. Patient tolerated therapy well, he was able to keep his o2 sats between 88- 94. Patient continues to require short rest breaks to recover his breathing. He has met all goals at this time. P. Continue POC.
== END 2017-04-27 15:03 | disposition home or self-care (01) | DRG 191 ==
LOC: ER 23:44 → MED/SURG 04-20 03:36 → ICU 04-21 10:07 → MED/SURG 04-22 12:55
PROVIDERS: ADMIT Internal Medicine; ATTEND Internal Medicine

== ENCOUNTER 2018-08-09 22:18 | Inpatient (IN) ==
[2018-08-09] MEDS ORDERED: ONDANSETRON 4 MG/2 ML VIAL IVP ONE (22:29)
[2018-08-09] MEDS ORDERED: ASPIRIN 81 MG (BABY) CHEWABLE TABLET PO ONE (22:29)
[2018-08-09] MEDS ORDERED: Sodium Chloride 0.9% 1,000 ML PRIMARY IV ONE (22:29)
--- NOTE | 2018-08-09 22:32 | EKG ---
[address] [address] Measurements Intervals [place] Rate: 83 P: 250 CT: 179 QRS: -81 QRSD: 141 T: 96 QT: 407 QTc: 447 Interpretive Statements ELECTRONIC ATRIAL PACEMAKER ELECTRONIC VENTRICULAR PACEMAKER WITH OCCASSIONAL VPCs ABNORMAL RHYTHM ECG Compared to ECG 03/11/2018 10:07:48 No significant changes Electronically Signed On 08-10-18 10:04:56 MDT by Lui Lemons [email or web address]
[2018-08-09 22:39] LABS: BASOPHILS # (AUTO) 0.01 10*3/UL; BASOPHILS % (AUTO) 0.2 % (0-1); EOSINOPHILS # (AUTO) 0.05 10*3/UL; EOSINOPHILS % (AUTO) 0.9 % (0-8); Hematocrit [HCT] 38.1 % (42.0-52.0); Hemoglobin [HGB] 12.3 g/dL (14.0-18.0); MEAN CORPUSCULAR HEMOGLOBIN 32.3 PG (27-31); MEAN CORPUSCULAR HGB CONC 32.3 g/dL (33-37); MEAN PLATELET VOLUME 10.7 FL (7.4-12.2); MONOCYTES # (AUTO) 2.05 10*3/UL (0.3-0.8); MONOCYTES % (AUTO) 36.3 % (5-15); NEUTROPHILS % (AUTO) 44.4 % (50-80); RED BLOOD COUNT 3.81 10^6/uL (4.70-6.10)
[2018-08-09 22:48] LABS: PLATELET MORPHOLOGY COMMENT NORMAL MORPHOLOGY (NORM); RBC MORPHOLOGY COMMENT NORMAL MORPHOLOGY (NORM); WBC MORPHOLOGY COMMENT NORMAL MORPHOLOGY (NORM)
[2018-08-09 22:52] LABS: BLOOD UREA NITROGEN 20 mg/dL (7-22); BUN/CREATININE RATIO 14.28 (6-20); SERUM ALBUMIN 4.7 g/dL (3.5-4.8)
--- NOTE | 2018-08-09 22:52 | PDOC ---
General Adult HPI - General Chief Complaint: Chest Pain Stated Complaint: CHEST, ABD. PAIN WITH N/V Date Seen by Provider: 08/09/18 Time Seen by Provider: 22:20 Source: POSITIVE: Patient Exam Limitations: POSITIVE: No limitations Nurse's Notes Reviewed & Considered: Yes - History of Present Illness Initial Comment: The patient is an 82-year-old male who presents to the emergency department with complaints of epigastric abdominal pain and chest pain. He states that shortly after dinner he developed nausea and subsequent vomiting. He then developed pain across his upper abdomen. He had continued nausea and vomiting. He also has developed some pressure across his chest. He states that the chest pressure feels similar to pain he has experienced with heart attacks in the past. He denies any increase shortness of breath or lightheadedness. His pain is not significantly worsened with taking a deep breath. He does have a history of coronary artery disease and is status post stent placement, last time in 2013. He also has a pacemaker defibrillator. He has had a history of acid reflux however denies any known history of ulcers. He states that he still has his gallbladder. He has not had any fevers or chills, blood in his emesis, any other associated symptoms at this time. He is currently rating his pain in his upper abdomen is a 7 out of 10. The pain in his chest is a 3 or 4 out of 10. He did not take any of his regular medications today including his aspirin. Have you received a tetanus shot in the past 10 years?: No - Patient Home Medications Home Medications: Home Medications Multivitamin with Minerals [One Daily Complete] 1 tab PO DAILY 07/06/14 aspirin 81 mg tablet,delayed release 81 mg PO QD tab 03/09/17 digoxin 125 mcg tablet 125 mcg PO DAILY #0 tab 03/09/17 metoprolol succinate ER 100 mg tablet,extended release 24 hr 100 mg PO DAILY tab 03/09/17 Nystatin Susp [Mycostatin Susp] 500,000 unit PO QID #1 cp 04/27/17 guaiFENesin ER Tab [Mucinex ER Tab] 1,200 mg PO BID #60 tab 04/27/17 fluticasone 100 mcg-salmeterol 50 mcg/dose blistr powdr for inhalation 1 puff INH RTBID #1 inhaler 10/19/17 tiotropium bromide 18 mcg capsule with inhalation device 18 mcg INH RTDAILY #1 inhaler 01/25/18 ipratropium-albuterol 0.5 mg-3 mg(2.5 mg base)/3 mL nebulization soln 3 ml INH Q4H PRN #180 ml 02/09/18 ferrous sulfate 325 mg (65 mg iron) tablet 325 mg PO QDAY tab 06/12/18 hydrocodone 7.5 mg-acetaminophen 325 mg tablet 1 tab PO Q4-6H PRN 06/12/18 losartan 100 mg tablet 100 mg PO QDAY 06/12/18 omeprazole 20 mg capsule,delayed release 20 mg PO QDAY 06/12/18 albuterol sulfate 2.5 mg/3 mL (0.083 %) solution for nebulization 2.5 mg INH RTQ2H PRN #180 ml 06/21/18 mirtazapine 15 mg tablet 15 mg PO QHS #90 tab-cap 06/26/18 tamsulosin 0.4 mg capsule 0.4 mg PO QHS #90 tab 06/26/18 warfarin 3 mg tablet 3 mg PO ASDIR #30 tab 07/10/18 atorvastatin 80 mg tablet 80 mg PO QHS #90 tab-cap 07/25/18 - Patient Allergies Allergies/Adverse Reactions: Allergies Allergy/AdvReac Type Severity Reaction Status Date / Time Penicillins Allergy Severe ANAPHLAXIS Verified 08/09/18 23:12 levofloxacin [Levofloxacin] Allergy Mild reticular Verified 08/09/18 23:12 rash on the trunk sitagliptin phosphate AdvReac Mild diarrhea Verified 08/09/18 23:12 [From Trixie] and electrolyte abnormalities bee sting Allergy Severe ANAPHLAXIS Uncoded 08/09/18 23:12 HORSE SERUM Allergy Intermediate HIVES Uncoded 08/09/18 23:12 Past Medical History - heen HEENT History: Cataracts, Hard of Hearing, Deaf Additional HEENT History: cataract surgery about 2 years ago Cardiovascular History: Hypertension, Previous NC, CAD, Pacemaker, Internal Defibrillator, Other (please comment) Additional Cardiovasular History: Chronic Atrial fibrillation. carotid art stent 05/2011. stents 01/2006, 01/2014. pacemaker/defi replaced 04/09/14 Respiratory History: COPD, Pneumonia, Home Oxygen Use Additional Respiratory History: 3.5L NC at home Gastrointestinal History: GERD Genitourinary History: Other (please comment) Additional Genitourinary History: TROUBLE URINATING SEEN UROLOGIST 06/19 Endocrine History: Denies History Additional Endocrine History: - HAD BS ISSUES WHILE ON STEROIDS BUT NOTHING SINCE Musculoskeletal History: Arthritis, Back Pain Prosthesis or Implant: No Additional Musculoskeletal History: Chronic Back Pain Neurological History: Denies History Blood Disorders: Other (please comment) Additional Blood Disorders History: Warfarin use for chronic A-Fib. plavix and asp daily Psychiatric History: Depression, Anxiety Disorders History of Sexually Transmitted Diseases: No Cancer History: Denies History In Past Year Been Physically Harmed or Verbally Threatened: No History of MDRO: No History of Other Communicable Diseases: No Tobacco Use: Former Smoker Alcohol Use: Occasionally In the Past 12 Months, Have Used or Abuse Any Substance: None Previous Surgical History: Yes Type / Date of Surgery: PACER/AICDCarotid endarterectomy, followed by CAROTID STENTS on the right side x 2 because of scarring and recurrent stenosis2 CARDIAC STENTS also. T&A/ BILAT CATARACAT EXT/ COLONOSCOPY/ CORONARY ANGIO/ VASECTOMY/ CARDIAC ABLATION Anesthesia Reactions: No Malignant Hyperthermia: No Significant Family History: Asthma, Heart disease, Cancer, COPD, Hypertension, Lung disease Past Medical History Reviewed: Reviewed - No Changes ROS - Limitations ROS Limitations: No Limitations Constitution: DENIES: Chills, Fever Cardiovascular: REPORTS: Chest Pain. DENIES: Heart Palpitations, Edema Respiratory: REPORTS: Shortness Of Breath (He states that he is chronically short of breath and wears oxygen at home.) Neurological: REPORTS: Denies Neuro Symptoms Gastrointestinal: REPORTS: Abdominal Pain, Nausea, Vomitting. DENIES: Diarrhea, Bloody Stools Musculoskeletal: DENIES: Lower Extremity Swelling Eyes: REPORTS: Denies Symptoms ENT: REPORTS: Denies Symptoms Skin: DENIES: Rash General Adult Exam - General Appearance General Appearance: POSITIVE: Alert, Cooperative, No Acute Distress - HEENT HEENT: POSITIVE: Head Inspection Nml, Eyes Inspection Nml, Ears Inspection Nml, Nose Inspection Nml, Pharynx Inspect. Nml - Neck Neck: POSITIVE: Normal Inspection. NEGATIVE: Lymphadenopathy - Respiratory Respiratory: POSITIVE: No Respiratory Distress, Breath Sounds Normal - Cardiovascular Cardiovascular: POSITIVE: Regular Rate & Rhythm, No Murmur - Abdomen Abdomen: Soft: (All Quadrants), Normal Bowel Sounds: (All Quadrants), No Guarding: (All Quadrants), No Rebound: (All Quadrants) Additional Abdominal Details: Tender in the epigastric region without guarding or rebound tenderness, no palpable mass - Skin Skin: POSITIVE: Normal Color, No Rash - Extremities Extremity: Normal ROM: (All Extremities), Normal Inspection: (All Extremities) - Neurological / Psychological Neurological: POSITIVE: Oriented X3, mixer helper Normal As Tested, Motor Normal, Sensation Normal General Adult Progress - Results Reviewed by me Xrays/CTs/US Reviewed by me: Yes Discussed with Radiologist: Yes Radiology Findings: CT of the chest shows no evidence of PE, emphysematous changes in the lungs, mild cardiomegaly, coronary calcifications, possible small amount of pleural edema per radiologist. CT the abdomen and pelvis shows layering densities in the gallbladder consistent with sludge or fine stones, subtle inflammatory fat stranding around the gallbladder with no other acute findings per radiologist. Lab Results Reviewed by Me: Yes Lab Results:: Laboratory Results 08/09/18 08/09/18 08/09/18 22:39 22:39 22:39 WBC 5.64 RBC 3.81 L Hgb 12.3 L Hct 38.1 L MCV 100.0 H MCH 32.3 H MCHC 32.3 L RDW Std Deviation 47.0 RDW Coeff of Ellen 13.2 Plt Count 128 L MPV 10.7 Immature Gran % (Auto) 0.5 Neut % (Auto) 44.4 L Lymph % (Auto) 17.7 [place] % (Auto) 36.3 H Eos % (Auto) 0.9 Baso % (Auto) 0.2 Immature Gran # (Auto) 0.03 Neut # (Auto) 2.50 Lymph # (Auto) 1.00 [place] # (Auto) 2.05 H Eos # (Auto) 0.05 Baso # (Auto) 0.01 WBC Morphology Comment Normal morphology Plt Morphology Comment Normal morphology RBC Morph Comment Normal morphology PT INR D-Dimer 1370 H Sodium 144 Potassium 4.2 Chloride 99 Carbon Dioxide 31 Anion Gap 14 BUN 20 Creatinine 1.4 BUN/Creatinine Ratio 14.28 Glucose 167 H Calculated Osmolality 304.0 H Calcium 9.3 Magnesium 1.4 L Total Bilirubin 1.0 AST 82 H ALT 72 Alkaline Phosphatase 114 CK-MB (CK-2) Troponin I C-Reactive Protein 0.6 NT-Pro-B Natriuret Pep 939 H Total Protein 7.6 Albumin 4.7 Globulin 2.9 Albumin/Globulin Ratio 1.60 Amylase 182 H Lipase 1583 H* Digoxin Serum Alcohol 08/09/18 08/09/18 08/09/18 22:39 22:39 22:39 WBC RBC Hgb Hct MCV MCH MCHC RDW Std Deviation RDW Coeff of Ellen Plt Count MPV Immature Gran % (Auto) Neut % (Auto) Lymph % (Auto) [place] % (Auto) Eos % (Auto) Baso % (Auto) Immature Gran # (Auto) Neut # (Auto) Lymph # (Auto) [place] # (Auto) Eos # (Auto) Baso # (Auto) WBC Morphology Comment Plt Morphology Comment RBC Morph Comment PT 40.8 H INR 3.50 D-Dimer Sodium Potassium Chloride Carbon Dioxide Anion Gap BUN Creatinine BUN/Creatinine Ratio Glucose Calculated Osmolality Calcium Magnesium Total Bilirubin AST ALT Alkaline Phosphatase CK-MB (CK-2) 6.16 H Troponin I 0.021 C-Reactive Protein NT-Pro-B Natriuret Pep Total Protein Albumin Globulin Albumin/Globulin Ratio Amylase Lipase Digoxin 0.9 Serum Alcohol 08/09/18 22:39 WBC RBC Hgb Hct MCV MCH MCHC RDW Std Deviation RDW Coeff of Ellen Plt Count MPV Immature Gran % (Auto) Neut % (Auto) Lymph % (Auto) [place] % (Auto) Eos % (Auto) Baso % (Auto) Immature Gran # (Auto) Neut # (Auto) Lymph # (Auto) [place] # (Auto) Eos # (Auto) Baso # (Auto) WBC Morphology Comment Plt Morphology Comment RBC Morph Comment PT INR D-Dimer Sodium Potassium Chloride Carbon Dioxide Anion Gap BUN Creatinine BUN/Creatinine Ratio Glucose Calculated Osmolality Calcium Magnesium Total Bilirubin AST ALT Alkaline Phosphatase CK-MB (CK-2) Troponin I C-Reactive Protein NT-Pro-B Natriuret Pep Total Protein Albumin Globulin Albumin/Globulin Ratio Amylase Lipase Digoxin Serum Alcohol < 10 CBC and BMP: 08/09/18 22:39 08/09/18 22:39 EKG Interpreted/Reviewed By Me:: Yes EKG Interpretation:: POSITIVE: Other (His EKG shows paced rhythm.) - Patient's Progress MDM / ED Course: The patient's vital signs were all stable on arrival with the exception of his blood pressure being elevated. His EKG shows a paced rhythm with no acute changes when compared to previous EKGs. An IV was established and he received a 1 L bolus of normal saline as well as Zofran 4 mg IV for nausea. He also received 4 baby aspirin per chest pain protocol. His blood work reveals a normal WBC and CRP. His troponin is also normal. BNP is elevated at 900. D- dimer is elevated at 1300. Lipase is elevated at 1500 with an elevated amylase of 182. Liver enzymes are all within normal limits with the exception of the AST being elevated at 82. His digoxin level was normal at 0.9. INR is 3.5. The patient's chest pain resolved shortly after arrival to the emergency department. He continued to have some epigastric pain. CTA of the chest as well as CT of the abdomen and pelvis was ordered. The CT of the chest shows no evidence of PE with other chronic findings. CT abdomen and pelvis shows layering density in the gallbladder consistent with sludge or fine stones, duct sizes were normal with no other acute findings per radiologist. His clinical presentation is most likely consistent with gallstone pancreatitis. His pain was improving here in the emergency department however has not resolved. I did discuss current findings with the patient and his daughter. I also discussed the patient with Dr. Wolfe was agreed to admit the patient for further care. - Consult Counseled: POSITIVE: Patient, Family, RE: Lab Results, RE: Radiology Results, RE: DX, RE: Need for F/U Patient Care Time - Estimated PCT Patient Care Time (In Minutes): 35 Vital Signs - Recent Vital Signs Vital Signs: Vital Signs (Last 8 hours) Temp Pulse Resp BP Pulse Ox 08/09/18 22:41 97.3 F 78 20 169/85 93 - VS Reviewed Vital Signs Reviewed: Yes Discharge Clinical Impression: Pancreatitis, Chest pain, Gallstones Discharge Disposition: Admit to Inpatient Condition: Fair Follow Up With: Laura Gilbert [Primary Care Provider] - Date Decision to Admit to Inpatient: 08/10/18 Time Decision to Admit to Inpatient: 00:55
[2018-08-09 23:16] LABS: LIPASE 1583 IU/L (23-300)
--- NOTE | 2018-08-10 00:34 | DI ---
EXAM: CT Abdomen and Pelvis With Intravenous Contrast CLINICAL HISTORY: ITS.REASON abdominal pain Physician Notes: Tech Comments: TECHNIQUE: Axial computed tomography images of the abdomen and pelvis with intravenous contrast. Coronal and sagittal reformatted images were created and reviewed. COMPARISON: Chest CT performed at the same time. Abdominal radiograph dated 07/11/14 and Retroperitoneal US dated 07/10/14 FINDINGS: Lung bases: Right lower lobe lung bleb. Bibasilar atelectasis and scarring. Left-sided cardiac pacing device. ABDOMEN: Liver: Unremarkable. No mass. Gallbladder and bile ducts: Layering density within the gallbladder which may reflect small stones versus sludge. Subtle adjacent fat stranding and pericholecystic fluid, correlate for acute cholecystitis. No ductal dilation. Pancreas: Unremarkable. No mass. No ductal dilation. Spleen: Unremarkable. No splenomegaly. Adrenals: Unremarkable. No mass. Kidneys and ureters: Bilateral renal hypodense lesions, too small to characterize. These measure up to 4.7 mm the left and 7 mm on the right. No hydronephrosis. Stomach and bowel: Diverticulosis without diverticulitis. No obstruction. PELVIS: Appendix: No findings to suggest acute appendicitis. Bladder: Unremarkable. No mass. Reproductive: Unremarkable as visualized. ABDOMEN and PELVIS: Intraperitoneal space: Unremarkable. No free air. No significant fluid collection. Bones/joints: Degenerative changes of the spine. No acute fracture. No dislocation. Grade 1 retrolisthesis of L1 over L2 and L2 over L3 Soft tissues: Left fat-containing inguinal hernia. Vasculature: Extensive atherosclerosis. No abdominal aortic aneurysm. Lymph nodes: Unremarkable. No enlarged lymph nodes. IMPRESSION: 1. Layering density within the gallbladder which may reflect small stones versus sludge. Subtle adjacent fat stranding and pericholecystic fluid, correlate for acute cholecystitis. 2. Left fat-containing inguinal hernia. 3. Diverticulosis without diverticulitis. 4. Bilateral renal hypodense lesions, too small to characterize. These measure up to 4.7 mm the left and 7 mm on the right.
--- NOTE | 2018-08-10 00:42 | DI ---
EXAM: CT Angiography Chest With Intravenous Contrast CLINICAL HISTORY: ITS.REASON chest pain Physician Notes: Tech Comments: TECHNIQUE: Axial computed tomographic angiography images of the chest with intravenous contrast using pulmonary embolism protocol. MIP reconstructed images were created and reviewed. Coronal and sagittal reformatted images were created and reviewed. COMPARISON: Chest CT dated 04/20/17. CT Abdomen and Pelvis performed at the same time. FINDINGS: Pulmonary arteries: No evidence of pulmonary embolism. Aorta: No acute findings. No thoracic aortic aneurysm. Lungs: Right lower lobe granulomas and lung bleb. Some subpleural fibrotic changes are seen within the lung bases. Centrilobular emphysematous changes are seen in the upper lobes. Some paraseptal emphysematous changes are also seen. Mild interstitial septal thickening which may reflect a degree of pulmonary edema. No mass. Pleural space: Unremarkable. No significant effusion. No pneumothorax. Heart: Extensive atherosclerosis including coronary vessel calcifications. Heart size appears mildly enlarged. No significant pericardial effusion. No evidence of RV dysfunction. Bones/joints: No acute fracture. No dislocation. Soft tissues: Unremarkable. Lymph nodes: Lower paratracheal lymph node seen measuring up to 2.7 cm, nonspecific. Right hilar lymph nodes measuring up to 17.3 mm. Left hilar lymph node measuring up to 10.7 mm. Periaortic lymph node measuring up to 2 cm. These lymph nodes are nonspecific. Gallbladder and bile ducts: Layering density within the gallbladder, please CT abdomen and pelvis report performed at the same time. Tubes, lines and devices: Left-sided cardiac pacing device. IMPRESSION: 1. No evidence of pulmonary embolism. 2. Extensive atherosclerosis including coronary vessel calcifications. 3. Heart size appears mildly enlarged. 4. Right lower lobe granulomas and lung bleb. Some subpleural fibrotic changes are seen within the lung bases. Centrilobular emphysematous changes are seen in the upper lobes. Some paraseptal emphysematous changes are also seen. 5. Mild interstitial septal thickening which may reflect a degree of pulmonary edema. 6. Layering density within the gallbladder, please CT abdomen and pelvis report performed at the same time.
[2018-08-10] MEDS ORDERED: ALBUTEROL SULFATE 2.5 MG/3 ML NEB PRN (01:37)
[2018-08-10] MEDS ORDERED: LIDOCAINE W/ SODIUM BICARB 0.5 ML SYR SUBD PRN (01:37)
[2018-08-10] MEDS ORDERED: CALCIUM CARBONATE 500 MG (TUMS) CHEWABLE TABLET PO PRN (01:37)
[2018-08-10] MEDS ORDERED: Mirtazapine Tab 15 MG TAB PO SCH (01:37)
[2018-08-10] MEDS ORDERED: TAMSULOSIN 0.4 MG CAPSULE PO SCH (01:37)
[2018-08-10] MEDS ORDERED: D5-1/2NS + 20mEq KCL 1,000 ML PRIMARY IV SCH (01:37)
[2018-08-10] MEDS ORDERED: DOCUSATE 100 MG CAPSULE PO PRN (01:37)
[2018-08-10] MEDS ORDERED: HYDROmorphone 2 MG/1 ML IVP PRN (01:37)
[2018-08-10] MEDS ORDERED: ACETAMINOPHEN 325 MG TABLET PO PRN (01:37)
--- NOTE | 2018-08-10 01:48 | PDOC ---
HPI - History of Present Illness Date of Service: 08/10/18 Time of Service: 01:43 Chief Complaint: abdominal pain History of Present Illness: This is a very pleasant 82 YO male with COPD with 2 LPM baseline oxygen, coronary artery disease, atrial fibrillation, x/p pacemaker, who presented tonight with abdominal pain of acute onset after his dinner tonight. He states he had nausea and vomiting and hurt along his rib cage but the pain was diffuse. He thought he was having a heart attack and came in for evaluation. His enzymes were negative for an acute [place]. The patient had an elevated lipase level and he was found to have acute cholecystitis and pancreatitis. He does not drink alcohol. This has not happened to the patient before. He denies any anginal chest pain or SOB with activity. The patient states pain medications in the emergency room helped. Liver enzymes were okay and there was no evidence of CBD dilation. Past Medical History Medical History: 1. COPD on 2 L oxygen. 2. Hypertension. 3. Hypercholesterolemia. 4. Coronary artery disease with previous stents. 5. History of right carotid artery stents. 6. History of pacemaker insertion. 7. atrial fib on anticoagulation Surgical History: 1. History of right carotid endarterectomy. Had a stent after that because of scarring. 2. coronary artery stent. 3. pacemaker/AICD. 4. ablation (cardiac). 5. tonsillectomy and addenoidectomy Pertinent Family History: cancer and coronary artery disease Past Social History: does not currently smoke tobacco, does not drink alcohol, worked in construction, , has four healthy children Tobacco Use: Former Smoker In the Past 12 Months, Have Used or Abuse Any of the Following Substance: None Alcohol Use: None Medication / Allergies Home Medications: Home Medications Medication Instructions Recorded Confirmed Multivitamin with Minerals [One 1 tab PO DAILY 07/06/14 08/09/18 Daily Complete] aspirin 81 mg tablet,delayed 81 mg PO QD tab 03/09/17 08/09/18 release digoxin 125 mcg tablet 125 mcg PO DAILY #0 tab 03/09/17 08/09/18 metoprolol succinate ER 100 mg 100 mg PO DAILY tab 03/09/17 08/09/18 tablet,extended release 24 hr Nystatin Susp [Mycostatin Susp] 500,000 unit PO QID #1 cp 04/27/17 08/09/18 guaiFENesin ER Tab [Mucinex ER 1,200 mg PO BID #60 tab 04/27/17 08/09/18 Tab] fluticasone 100 mcg-salmeterol 50 1 puff INH RTBID #1 inhaler 10/19/17 08/09/18 mcg/dose blistr powdr for inhalation tiotropium bromide 18 mcg capsule 18 mcg INH RTDAILY #1 inhaler 01/25/18 08/09/18 with inhalation device ipratropium-albuterol 0.5 mg-3 3 ml INH Q4H PRN #180 ml 02/09/18 08/09/18 mg(2.5 mg base)/3 mL nebulization soln ferrous sulfate 325 mg (65 mg 325 mg PO QDAY tab 06/12/18 08/09/18 iron) tablet fluticasone fur. 100 mcg-umeclid 1 each Blst.W.Dev#2 Samples 06/12/18 06/12/18 62.5 mcg-vilant 25 mcg inhalat.powder hydrocodone 7.5 mg-acetaminophen 1 tab PO Q4-6H PRN 06/12/18 08/09/18 325 mg tablet losartan 100 mg tablet 100 mg PO QDAY 06/12/18 08/09/18 omeprazole 20 mg capsule,delayed 20 mg PO QDAY 06/12/18 08/09/18 release albuterol sulfate 2.5 mg/3 mL 2.5 mg INH RTQ2H PRN #180 ml 06/21/18 08/09/18 (0.083 %) solution for nebulization mirtazapine 15 mg tablet 15 mg PO QHS #90 tab-cap 06/26/18 08/09/18 tamsulosin 0.4 mg capsule 0.4 mg PO QHS #90 tab 06/26/18 08/09/18 fluticasone fur. 100 mcg-umeclid 1 each Blst.W.Dev#4 Samples 06/27/18 62.5 mcg-vilant 25 mcg inhalat.powder warfarin 3 mg tablet 3 mg PO ASDIR #30 tab 07/10/18 08/09/18 atorvastatin 80 mg tablet 80 mg PO QHS #90 tab-cap 07/25/18 08/09/18 Allergies/Adverse Reactions: Allergies Allergy/AdvReac Type Severity Reaction Status Date / Time Penicillins Allergy Severe ANAPHLAXIS Verified 08/09/18 23:12 levofloxacin [Levofloxacin] Allergy Mild reticular Verified 08/09/18 23:12 rash on the trunk sitagliptin phosphate AdvReac Mild diarrhea Verified 08/09/18 23:12 [From Januvia] and electrolyte abnormalities bee sting Allergy Severe ANAPHLAXIS Uncoded 08/09/18 23:12 HORSE SERUM Allergy Intermediate HIVES Uncoded 08/09/18 23:12 Review of Systems - Constitutional Constitutional: REPORTS: General Health Fair, Weight Gain - Respiratory Respiratory: REPORTS: Negative System Review - Cardiovascular Cardiovascular: REPORTS: Negative System Review - Gastrointestinal Gastrointestinal / Abdominal: REPORTS: See HPI - Genitourinary Genitourinary: REPORTS: Negative System Review - Musculoskeletal Musculoskeletal: REPORTS: Negative System Review - Hematlogic / Lymphatic Hematologic / Lymphatic: REPORTS: Negative System Review - Neurological Neurologic: REPORTS: Negative System Review - Psychiatric Psychiatric: REPORTS: Negative System Review Exam - Vitals Vital Signs: Vital Signs Temperature 97.3 F Pulse Rate [Pulse Oximeter] 78 Respiratory Rate 20 Blood Pressure [Left Arm] 169/85 Pulse Ox 93 Oxygen Flow Rate 4 Oxygen Delivery Method Nasal Cannula Height 5 ft 11 in Weight 190 lb - General General Appearance: No Acute Distress, Cooperative - Head Head Exam: Normal Inspection, Normocephalic, Atraumatic - Eye Eye Exam: POSITIVE: No Scleral Icterus - ENT ENT Exam: POSITIVE: Mucous Membranes Moist - Neck Neck Exam: Normal Inspection, No Tenderness, No Lymphadenopathy, No Thyromegaly, JVP is not Raised - Respiratory Respiratory Exam: POSITIVE: Breathing Non Labored, Normal to Percussion and Palpation, Coarse Breath Sounds - Cardiovascular Cardiovascular Exam: POSITIVE: RRR, No Murmur, No Clicks, No Gallops, No Rubs, No JVD - GI/Abdominal GI/Abdominal Exam: POSITIVE: Normal Bowel Sounds, Non Tender, Non Distended, Soft - Rectal Rectal Exam: POSITIVE: Deferred - External Exam: POSITIVE: Deferred Exam: POSITIVE: Deferred - Extremities Extremities Exam: POSITIVE: No Clubbing Present, No Edema Present, No Cyanosis Present - Back Back Exam: POSITIVE: No CVA Tenderness - Neurological Neurological Exam: POSITIVE: Alert, Oriented x 3, No Facial Droop, Speech Intact / Clear, Moves All Extremities Equally - Psychiatric Psychiatric Exam: POSITIVE: Normal Affect, Normal Mood Results - Labs CBC and BMP: 08/09/18 22:39 08/09/18 22:39 Additional Lab Results: Laboratory Results 08/09/18 08/09/18 08/09/18 22:39 22:39 22:39 WBC 5.64 RBC 3.81 L Hgb 12.3 L Hct 38.1 L MCV 100.0 H MCH 32.3 H MCHC 32.3 L RDW Std Deviation 47.0 RDW Coeff of Ellen 13.2 Plt Count 128 L MPV 10.7 Immature Gran % (Auto) 0.5 Neut % (Auto) 44.4 L Lymph % (Auto) 17.7 Alexander % (Auto) 36.3 H Eos % (Auto) 0.9 Baso % (Auto) 0.2 Immature Gran # (Auto) 0.03 Neut # (Auto) 2.50 Lymph # (Auto) 1.00 Alexander # (Auto) 2.05 H Eos # (Auto) 0.05 Baso # (Auto) 0.01 WBC Morphology Comment Normal morphology Plt Morphology Comment Normal morphology RBC Morph Comment Normal morphology PT INR D-Dimer 1370 H Sodium 144 Potassium 4.2 Chloride 99 Carbon Dioxide 31 Anion Gap 14 BUN 20 Creatinine 1.4 BUN/Creatinine Ratio 14.28 Glucose 167 H Calculated Osmolality 304.0 H Calcium 9.3 Magnesium 1.4 L Total Bilirubin 1.0 AST 82 H ALT 72 Alkaline Phosphatase 114 CK-MB (CK-2) Troponin I C-Reactive Protein 0.6 NT-Pro-B Natriuret Pep 939 H Total Protein 7.6 Albumin 4.7 Globulin 2.9 Albumin/Globulin Ratio 1.60 Amylase 182 H Lipase 1583 H* Digoxin Serum Alcohol 08/09/18 08/09/18 08/09/18 22:39 22:39 22:39 WBC RBC Hgb Hct MCV MCH MCHC RDW Std Deviation RDW Coeff of Ellen Plt Count MPV Immature Gran % (Auto) Neut % (Auto) Lymph % (Auto) Alexander % (Auto) Eos % (Auto) Baso % (Auto) Immature Gran # (Auto) Neut # (Auto) Lymph # (Auto) Alexander # (Auto) Eos # (Auto) Baso # (Auto) WBC Morphology Comment Plt Morphology Comment RBC Morph Comment PT 40.8 H INR 3.50 D-Dimer Sodium Potassium Chloride Carbon Dioxide Anion Gap BUN Creatinine BUN/Creatinine Ratio Glucose Calculated Osmolality Calcium Magnesium Total Bilirubin AST ALT Alkaline Phosphatase CK-MB (CK-2) 6.16 H Troponin I 0.021 C-Reactive Protein NT-Pro-B Natriuret Pep Total Protein Albumin Globulin Albumin/Globulin Ratio Amylase Lipase Digoxin 0.9 Serum Alcohol 08/09/18 22:39 WBC RBC Hgb Hct MCV MCH MCHC RDW Std Deviation RDW Coeff of Ellen Plt Count MPV Immature Gran % (Auto) Neut % (Auto) Lymph % (Auto) Alexander % (Auto) Eos % (Auto) Baso % (Auto) Immature Gran # (Auto) Neut # (Auto) Lymph # (Auto) Alexander # (Auto) Eos # (Auto) Baso # (Auto) WBC Morphology Comment Plt Morphology Comment RBC Morph Comment PT INR D-Dimer Sodium Potassium Chloride Carbon Dioxide Anion Gap BUN Creatinine BUN/Creatinine Ratio Glucose Calculated Osmolality Calcium Magnesium Total Bilirubin AST ALT Alkaline Phosphatase CK-MB (CK-2) Troponin I C-Reactive Protein NT-Pro-B Natriuret Pep Total Protein Albumin Globulin Albumin/Globulin Ratio Amylase Lipase Digoxin Serum Alcohol < 10 - EKG Data -: EKG Interpreted by Me - EKG Data EKG Interpretation: Other (paced rhythm) - Imaging Status: Image Reviewed by Me (CT scan of chest, consistent with emphysema, question early infiltrate in right lower lobe? CT scan of abd/pelvis, the gall bladder looks distended to me I reviewed the radiology reports for these images) Assessment and Plan - Patient Problems (1) Pancreatitis Current Visit: Yes Status: Acute Code(s): K85.90 - Acute pancreatitis without necrosis or infection, unspecified Qualifiers: Chronicity: acute Pancreatitis type: biliary Acute pancreatitis complication: no infection or necrosis Qualified Code(s): K85.10 - Biliary acute pancreatitis without necrosis or infection (2) COPD (chronic obstructive pulmonary disease) Current Visit: Yes Status: Acute Code(s): J44.9 - Chronic obstructive pulmonary disease, unspecified Qualifiers: COPD type: emphysema Emphysema type: panlobular Qualified Code(s): J43.1 - Panlobular emphysema (3) Hyperlipidemia Current Visit: Yes Status: Chronic Onset Date: 09/13/11 Code(s): E78.5 - Hyperlipidemia, unspecified Qualifiers: Hyperlipidemia type: unspecified Qualified Code(s): E78.5 - Hyperlipidemia, unspecified (4) Essential hypertension Current Visit: Yes Status: Chronic Onset Date: 02/08/13 Code(s): I10 - Essential (primary) hypertension (5) CAD (coronary artery disease) Current Visit: Yes Status: Chronic Onset Date: 09/10/14 Code(s): I25.10 - Atherosclerotic heart disease of [place] coronary artery without angina pectoris Qualifiers: Coronary Disease-Associated Artery/Lesion type: [place] artery [place] vs. transplanted heart: [place] heart Associated angina: without angina Qualified Code(s): I25.10 - Atherosclerotic heart disease of [place] coronary artery without angina pectoris (6) Atrial fibrillation Current Visit: Yes Status: Chronic Onset Date: 12/01/10 Code(s): I48.91 - Unspecified atrial fibrillation Qualifiers: Atrial fibrillation type: chronic Qualified Code(s): I48.2 - Chronic atrial fibrillation (7) Presence of combination internal cardiac defibrillator (ICD) and pacemaker Current Visit: Yes Status: Chronic Onset Date: 03/03/16 Code(s): Z95.810 - Presence of automatic (implantable) cardiac defibrillator - Assessment / Plan Additional Assessment/Plan Details: admit NPO IV fluids, pain medications and antiemetics will likely need eventual cholecysectomy, so reverse INR this early AM with IV vitamin K, hold coumadin for now check labs, including lipase in AM given findings suggestive of acute cholecystitis, temp on floor at 99.3, start rocephin/flagyl IV will likely need surgical eval when pancreatitis resolved--CBD looks normal on CT, but wonder about intraop cholangiogram? I think patient is okay to do surgery here, based on AHA/ACC guidelines. will need to resume aspirin post operatively try to continue trelogy for COPD DNR code status plan above discussed with patient and he agrees with the plan.
[2018-08-10] MEDS ORDERED: cefTRIAXone Inj 2 GM in Sodium Chloride 0.9% 100 ML IV SCH (02:00)
[2018-08-10] MEDS: metroNIDAZOLE 500mg (Premix) 500 MG/100 ML BAG IV SCH ×2 (03:58→12:04)
[2018-08-10] MEDS: ONDANSETRON 4 MG/2 ML VIAL IVP PRN ×2 (05:07→10:33)
[2018-08-10] MEDS ORDERED: TIOTROPIUM BROMIDE 18 MCG CAPSULE INH SCH (07:00)
[2018-08-10] MEDS ORDERED: FLUTICASONE/SALMETEROL 100/50 UD INHALER INH SCH (07:00)
--- NOTE | 2018-08-10 08:22 | DI ---
XR CXR 1VW,08/09/2018 10:29 PM: Clinical History: Chest pain Previous Exam: None at this facility. Findings: A single frontal radiograph of the chest is obtained, and demonstrates subsegmental atelectasis in th e lung bases. There is a left-sided pacemaker device in good position. There is subsegmental atelectasis in the lung bases. Impression: Subsegmental atelectasis in the lung bases otherwise unremarkable.
[2018-08-10 08:58] VITALS: RESP 20
[2018-08-10] MEDS ORDERED: TRELEGY ELLIPTA INH SCH (09:00)
[2018-08-10] MEDS ORDERED: Multivitamin Tab 1 TAB PO SCH (09:00)
[2018-08-10] MEDS ORDERED: GUAIFENESIN 600 MG TABLET PO SCH (09:00)
[2018-08-10] MEDS ORDERED: DIGOXIN 125 MCG TABLET PO SCH (09:00)
[2018-08-10] MEDS ORDERED: METOPROLOL SUCCINATE 100 MG SR 24H TABLET PO SCH (09:00)
[2018-08-10] MEDS: HYDROmorphone 2 MG/1 ML IVP PRN ×2 (10:34→15:41)
--- NOTE | 2018-08-10 11:17 | PDOC(PROG) ---
Date of Service: 08/10/18 Time of Service: 11:00 Interval History: Subjective He said he came in yesterday with abdominal pain, vomiting multiple times that started after supper. Evaluation revealed pancreatitis and question of stone versus sludge in the gallbladder. He just received pain medication so he feels better compared to earlier. Rated his pain yesterday maybe 7 out of 10. Said he never had this pain before. There was no radiation elsewhere. No chest pain today or shortness of breath. Objective : Data - Labs CBC and BMP: 08/10/18 11:25 08/10/18 11:28 Objective : Exam - General General Appearance: No Acute Distress, Cooperative - Head Head Exam: Normal Inspection - Eye Eye Exam: Normal Appearance - ENT ENT Exam: Normal Exam - Neck Neck Exam: Normal Inspection - Respiratory Respiratory Exam: Clear to Auscultation - Bilaterally - Cardiovascular Cardiovascular Exam: RRR - GI/Abdominal GI/Abdominal Exam: Normal Bowel Sounds, Non Distended, Soft, No Organomegaly Additional GI/Abdominal Exam Details: Some tenderness in the epigastrium and right upper quadrant. - Rectal Rectal Exam: Deferred - External Exam: Deferred Exam: Deferred - Extremities Extremities Exam: Normal Inspection - Back Back Exam: Normal Inspection - Neurological Neurological Exam: Alert, Oriented x 3, CN II-XII Intact, No Facial Droop, Speech Intact / Clear - Psychiatric Psychiatric Exam: Normal Affect Assessment and Plan - Patient Problems (1) Pancreatitis Current Visit: Yes Status: Acute Comment: Probably biliary pancreatitis. Will order ultrasound of his gallbladder, continue IV antibiotics, continue current pain medication. Will repeat his labs. Did speak with Dr. Lindsay. Code(s): K85.90 - Acute pancreatitis without necrosis or infection, unspecified Qualifiers: Chronicity: acute Pancreatitis type: biliary Acute pancreatitis complication: no infection or necrosis Qualified Code(s): K85.10 - Biliary acute pancreatitis without necrosis or infection (2) Atrial fibrillation Current Visit: Yes Status: Chronic Onset Date: 12/01/10 Comment: Continue metoprolol and digoxin. Coumadin was withheld. He did receive vitamin K this morning. Repeat his INR. Code(s): I48.91 - Unspecified atrial fibrillation Qualifiers: Atrial fibrillation type: chronic Qualified Code(s): I48.2 - Chronic atrial fibrillation (3) CAD (coronary artery disease) Current Visit: Yes Status: Chronic Onset Date: 09/10/14 Comment: Continue metoprolol. Code(s): I25.10 - Atherosclerotic heart disease of [place] coronary artery without angina pectoris Qualifiers: Coronary Disease-Associated Artery/Lesion type: [place] artery [place] vs. transplanted heart: [place] heart Associated angina: without angina Qualified Code(s): I25.10 - Atherosclerotic heart disease of [place] coronary artery without angina pectoris (4) Essential hypertension Current Visit: Yes Status: Chronic Onset Date: 02/08/13 Comment: Continue metoprolol. Losartan was withheld will watch his blood pressure. Code(s): I10 - Essential (primary) hypertension (5) COPD (chronic obstructive pulmonary disease) Current Visit: Yes Status: Acute Comment: He is on oxygen and breathing treatment as needed Code(s): J44.9 - Chronic obstructive pulmonary disease, unspecified Qualifiers: COPD type: emphysema Emphysema type: panlobular Qualified Code(s): J43.1 - Panlobular emphysema
[2018-08-10 11:33] LABS: BASOPHILS # (AUTO) 0 10*3/UL; BASOPHILS % (AUTO) 0 % (0-1); EOSINOPHILS # (AUTO) 0.01 10*3/UL; EOSINOPHILS % (AUTO) 0.1 % (0-8); Hematocrit [HCT] 34.9 % (42.0-52.0); Hemoglobin [HGB] 11.4 g/dL (14.0-18.0); LYMPHOCYTES # (AUTO) 0.82 10*3/uL; MEAN CORPUSCULAR HEMOGLOBIN 32.6 PG (27-31); MEAN CORPUSCULAR HGB CONC 32.7 g/dL (33-37); MEAN CORPUSCULAR VOLUME 99.7 FL (80-90); MEAN PLATELET VOLUME 10.5 FL (7.4-12.2); MONOCYTES # (AUTO) 2.85 10*3/UL (0.3-0.8); MONOCYTES % (AUTO) 38.6 % (5-15); NEUTROPHILS # (AUTO) 3.67 10*3/UL; NEUTROPHILS % (AUTO) 49.8 % (50-80)
[2018-08-10 11:49] LABS: PLATELET MORPHOLOGY COMMENT NORMAL MORPHOLOGY (NORM); RBC MORPHOLOGY COMMENT NORMAL MORPHOLOGY (NORM); WBC MORPHOLOGY COMMENT NORMAL MORPHOLOGY (NORM)
[2018-08-10 11:56] LABS: BLOOD UREA NITROGEN 15 mg/dL (7-22); BUN/CREATININE RATIO 13.63 (6-20); LIPASE 320 IU/L (23-300); SERUM ALBUMIN 3.5 g/dL (3.5-4.8)
[2018-08-10 12:38] VITALS: BP 121/58; TEMP 98.1; O2SAT 91
[2018-08-10 14:54] LABS: BILIRUBIN,URINE SMALL (NEG); CLARITY,URINE CLEAR (CLEAR); COLOR,URINE YELLOW (Y); GLUCOSE, URINE (UA) NEGATIVE (NEG); OCCULT BLOOD,URINE NEGATIVE (NEG); PH,URINE 5.5 (5.0-8.5); PROTEIN,URINE 30 mg/dl (NEG); UROBILINOGEN,URINE 0.2 EU/dL (0.2)
[2018-08-10 14:58] LABS: SQUAMOUS EPITHELIAL CELL,UR RARE; URINE CASTS FEW; URINE SAMPLE TYPE CLEAN CATCH URINE
--- NOTE | 2018-08-10 15:32 | DCSUMMARY ---
Hospitalization Summary Admit Date: 08/10/2018 Discharge Date: 08/10/18 Hospital Course: Transfer diagnoses 1. Biliary pancreatitis 2. Possible echogenic material at the distal common bile duct with proximal dilatation 3. Echogenic material in the gallbladder 4. History of COPD on oxygen 5. History of hypertension 6. History of coronary artery disease with previous stents 7. History of pacemaker insertion 8. History of atrial fibrillation on anticoagulation Hospital course This is an 82 years old male with medical history significant for history of COPD on oxygen, coronary artery disease with previous stents, atrial fibrillation history of pacemaker insertion who presented late last night with abdominal pain and vomiting that happened after supper. He vomited multiple times. Evaluation in the ER revealed elevated lipase, CT of the abdomen showed layering density within the gallbladder which may reflect small stone versus sludge. There is subtle adjacent fat stranding and pericholecystic fluid. He was admitted to the hospital by Dr. Shaver please see his note. Patient was put on IV fluid, nothing by mouth and IV antibiotics including Rocephin and Flagyl. I saw him the next day he was still having some abdominal pain but controlled with the pain medication. Repeat lab did show increase in the bilirubin from 1-2.6. His AST went from 82-263, ALT went up from 72-310. We did do an ultrasound of the gallbladder and per my discussion with the radiologist he think that there is an echogenic material within the distal common bile duct with proximal dilatation. There is also echogenic material in the gallbladder itself. We cannot do an MRCP because of the pacemaker. Did speak with the surgeon Dr. Lindsay who suggested transfer. I did speak with Dr. Villanueva at [facility] [place] and he accepted the patient. I did speak with Dr. Lomeli the hospitalist and he accepted the patient. Patient himself accepted the transfer. We did repeat his INR after receiving vitamin K and his INR went down from 3.5-1.78. Transfer instruction Diet nothing by mouth Medications Active Medications Acetaminophen (Tylenol) 650 mg PO Q6H PRN PRN Reason: Pain or Fever Albuterol Sulfate (Albuterol Neb Soln 0.083%) 2.5 mg NEB RTQ2H PRN PRN Reason: Shortness of Breath Last Admin: 08/10/18 06:26 Dose: 2.5 mg Documented by: Calcium Carbonate (Tums) 1 - 2 tab PO Q6H PRN PRN Reason: Heartburn Digoxin (Lanoxin) 125 mcg PO DAILY [facility] Last Admin: 08/10/18 08:48 Dose: 125 mcg Documented by: Docusate Sodium (Colace) 100 mg PO BID PRN PRN Reason: Constipation Guaifenesin (Mucinex Er Tab) 1,200 mg PO BID [facility] Last Admin: 08/10/18 10:13 Dose: Not Given Documented by: Hydromorphone HCl (Dilaudid Inj) 0.5 mg IVP Q3H PRN PRN Reason: Pain Last Admin: 08/10/18 15:41 Dose: 0.5 mg Documented by: Potassium Chloride/Dextrose/Sod Cl (Pot Chl 20meq + D5-1/2ns) 1,000 mls @ 125 mls/hr PRIMARY IV .Q8H [facility] Last Admin: 08/10/18 02:05 Dose: 125 mls/hr Documented by: Sodium Chloride (Normal Saline 0.9%) 25 mls @ 200 mls/hr IV .Post Infusion PRN PRN Reason: No Primary IV for Flush ONLY Ceftriaxone Sodium 2 gm/ (Sodium Chloride) 100 mls @ 100 mls/hr IV Q24H [facility] Last Admin: 08/10/18 02:57 Dose: 100 mls/hr Documented by: Metronidazole (Flagyl 500mg (Premix)) 500 mg in 100 mls @ 100 mls/hr IV Q8H [facility] Last Admin: 08/10/18 12:04 Dose: 100 mls/hr Documented by: Lidocaine HCl (Lidocaine Buffered Inj) 0.5 ml SUBD ONCE PRN PRN Reason: IV Starts Metoprolol Succinate (Toprol Xl) 100 mg PO DAILY [facility] Last Admin: 08/10/18 08:48 Dose: 100 mg Documented by: Mirtazapine (Remeron) 15 mg PO BEDTIME [facility] Last Admin: 08/10/18 02:05 Dose: 15 mg Documented by: Multivitamins Therapeutic (Thera Tab) 1 tab PO DAILY [facility] Last Admin: 08/10/18 10:13 Dose: Not Given Documented by: Nf (Trelegy Ellipta 100-62.5-25 [ Fluticasone/Umeclidin/Vilanter] 1 Inh) 1 inh INH BID [facility] Ondansetron HCl (Zofran Inj) 4 mg IVP Q4H PRN PRN Reason: NAUSEA / VOMITING Last Admin: 08/10/18 10:33 Dose: 4 mg Documented by: Tamsulosin HCl (Flomax) 0.4 mg PO BEDTIME [facility] Last Admin: 08/10/18 02:05 Dose: 0.4 mg Documented by: Follow-up per [facility] post discharge Condition at discharge was stable for discharge Exam - Vitals Vital Signs: Vital Signs Temperature 98.1 F Temperature Source Temporal Artery Scan Pulse Rate [Pulse Oximeter] 80 Pulse Rate [pulse ox] 82 Pulse Rate 80 Respiratory Rate 20 Blood Pressure [Left Arm] 121/58 Blood Pressure 165/80 Pulse Ox [pulse ox] 91 Pulse Ox 91 Oxygen Flow Rate [pulse ox] 4 Oxygen Flow Rate 2 Oxygen Delivery Method [pulse Nasal Cannula ox] Oxygen Delivery Method Nasal Cannula Height 5 ft 11 in Weight 189 lb 9.6 oz Patient Problems - Patient Problem List (1) Pancreatitis Current Visit: Yes Status: Acute Code(s): K85.90 - Acute pancreatitis without necrosis or infection, unspecified Qualifiers: Chronicity: acute Pancreatitis type: biliary Acute pancreatitis complication: no infection or necrosis Qualified Code(s): K85.10 - Biliary acute pancreatitis without necrosis or infection Category: Medical (2) Atrial fibrillation Current Visit: Yes Status: Chronic Onset Date: 12/01/10 Code(s): I48.91 - Unspecified atrial fibrillation Qualifiers: Atrial fibrillation type: chronic Qualified Code(s): I48.2 - Chronic atrial fibrillation Category: Medical (3) CAD (coronary artery disease) Current Visit: Yes Status: Chronic Onset Date: 09/10/14 Code(s): I25.10 - Atherosclerotic heart disease of [place] coronary artery without angina pectoris Qualifiers: Coronary Disease-Associated Artery/Lesion type: [place] artery [place] vs. transplanted heart: [place] heart Associated angina: without angina Qualified Code(s): I25.10 - Atherosclerotic heart disease of [place] coronary artery without angina pectoris Category: Medical (4) Essential hypertension Current Visit: Yes Status: Chronic Onset Date: 02/08/13 Code(s): I10 - Essential (primary) hypertension Category: Medical (5) COPD (chronic obstructive pulmonary disease) Current Visit: Yes Status: Acute Code(s): J44.9 - Chronic obstructive pulmonary disease, unspecified Qualifiers: COPD type: emphysema Emphysema type: panlobular Qualified Code(s): J43.1 - Panlobular emphysema Category: Medical
--- NOTE | 2018-08-10 15:44 | CONSULT ---
Consult Note - Consult Consult Date: 08/10/18 Reason for Consult: PreOp Consulation : General Surgery Requesting Physician: Dr. White Primary Care Provider: Laura Gilbert MD - History of Present Illness History of Present Illness: The patient is an 82-year-old male I'm asked to see for gallstones and pancreatitis. Patient reports he was fine until shortly after eating dinner last night. About 7:00pm he developed severe epigastric pain with associated nausea and vomiting. The pain did not radiate into his back. He is never had a pain like this before. He did not know he had gallstones. He has never had pancreatitis. He presented to the emergency room. His lipase was elevated at 1583. The AST was slightly elevated at 82. His amylase was elevated slightly at 182. His bilirubin and alkaline phosphatase were normal. He had a CT scan done which shows sludge or small stones in the gallbladder. There is question of inflammatory changes and a small amount of pericholecystic fluid. The duct is nondilated. He was started on pain medications, Rocephin, and Flagyl. Dr. White asked me to see him this morning. I recommended an ultrasound and repeat labs. Ultrasound was done and it shows a 3 mm wall but no obvious ankit- cholecystic fluid. There appears to be small stones in the gallbladder. There is minimal shadowing. The common bile duct is dilated at 9 mm. There appears to be sludge or stones in the distal common bile duct as well. His bilirubin has increased to 2.6 from 1. His AST is increased from 82-263. His ALT has gone from 70-310.. His alkaline phosphatase was normal and has stayed normal and is 85 at this time.. His amylase was 182 and not repeated today. His lipase is 1580 down to 310. His INR is down to 1.78 following vitamin K. Presumptively this patient has common bile duct stones. He cannot do an MRCP with his defibrillator/pacemaker in place. I recommend he be transferred to [facility] [place] for [place] ERCP. I discussed this with the patient and his family as well as Dr. White. If they want to decompressed his bile du ct and place a stent we could do his surgery electively next week. Review of Systems - Gastrointestinal Gastrointestinal / Abdominal: REPORTS: Nausea, Vomiting, Abdominal Pain, See HPI Past Medical History Medical History: 1. COPD on 2 L oxygen. 2. Hypertension. 3. Hypercholesterolemia. 4. Coronary artery disease with previous stents. 5. History of right carotid artery stents. 6. History of pacemaker insertion. 7. atrial fib on anticoagulation Surgical History: 1. History of right carotid endarterectomy. Had a stent after that because of scarring. 2. coronary artery stent. 3. pacemaker/AICD. 4. ablation (cardiac). 5. tonsillectomy and addenoidectomy. 6. 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 Tobacco Use: Former Smoker In the Past 12 Months, Have Used or Abuse Any of the Following Substance: None Alcohol Use: None Medication / Allergies Home Medications: Home Medications Medication Instructions Recorded Confirmed Multivitamin with Minerals [One 1 tab PO DAILY 07/06/14 08/09/18 Daily Complete] aspirin 81 mg tablet,delayed 81 mg PO QD tab 03/09/17 08/09/18 release digoxin 125 mcg tablet 125 mcg PO DAILY #0 tab 03/09/17 08/09/18 metoprolol succinate ER 100 mg 100 mg PO DAILY tab 03/09/17 08/09/18 tablet,extended release 24 hr guaiFENesin ER Tab [Mucinex ER 1,200 mg PO BID #60 tab 04/27/17 08/09/18 Tab] tiotropium bromide 18 mcg capsule 18 mcg INH RTDAILY #1 inhaler 01/25/18 08/09/18 with inhalation device ipratropium-albuterol 0.5 mg-3 3 ml INH Q4H PRN #180 ml 02/09/18 08/09/18 mg(2.5 mg base)/3 mL nebulization soln ferrous sulfate 325 mg (65 mg 325 mg PO QDAY tab 06/12/18 08/09/18 iron) tablet losartan 100 mg tablet 100 mg PO QDAY 06/12/18 08/09/18 albuterol sulfate 2.5 mg/3 mL 2.5 mg INH RTQ2H PRN #180 ml 06/21/18 08/09/18 (0.083 %) solution for nebulization mirtazapine 15 mg tablet 15 mg PO QHS #90 tab-cap 06/26/18 08/09/18 tamsulosin 0.4 mg capsule 0.4 mg PO QHS #90 tab 06/26/18 08/09/18 warfarin 3 mg tablet 3 mg PO ASDIR #30 tab 07/10/18 08/09/18 atorvastatin 80 mg tablet 80 mg PO QHS #90 tab-cap 07/25/18 08/09/18 Allergies/Adverse Reactions: Allergies Allergy/AdvReac Type Severity Reaction Status Date / Time Penicillins Allergy Severe ANAPHLAXIS Verified 08/09/18 23:12 levofloxacin [Levofloxacin] Allergy Mild reticular Verified 08/09/18 23:12 rash on the trunk sitagliptin phosphate AdvReac Mild diarrhea Verified 08/09/18 23:12 [From Januvia] and electrolyte abnormalities bee sting Allergy Severe ANAPHLAXIS Uncoded 08/09/18 23:12 HORSE SERUM Allergy Intermediate HIVES Uncoded 08/09/18 23:12 Results - Labs CBC and BMP: 08/10/18 11:25 08/10/18 11:28 - Imaging Status: Image Reviewed by Me (And discussed with the radiologist.), Report Reviewed by Me Exam - Vitals Vital Signs: Vital Signs Temperature 98.1 F Temperature Source Temporal Artery Scan Pulse Rate [Pulse Oximeter] 80 Pulse Rate [pulse ox] 82 Pulse Rate 80 Respiratory Rate 20 Blood Pressure [Left Arm] 121/58 Blood Pressure 165/80 Pulse Ox [pulse ox] 91 Pulse Ox 91 Oxygen Flow Rate [pulse ox] 4 Oxygen Flow Rate 2 Oxygen Delivery Method [pulse Nasal Cannula ox] Oxygen Delivery Method Nasal Cannula Height 5 ft 11 in Weight 189 lb 9.6 oz - General General Appearance: No Acute Distress, Cooperative - Respiratory Respiratory Exam: POSITIVE: Clear to Auscultation - Bilaterally, Breathing Non Labored - Cardiovascular Cardiovascular Exam: POSITIVE: RRR, No Murmur - GI/Abdominal GI/Abdominal Exam: POSITIVE: Normal Bowel Sounds, Soft Additional GI/Abdominal Exam Details: Minimal epigastric tenderness to deep palpation. Some right upper quadrant tenderness. Not an acute abdomen. - Rectal Rectal Exam: POSITIVE: Deferred - Neurological Neurological Exam: POSITIVE: Alert, Oriented x 3 - Psychiatric Psychiatric Exam: POSITIVE: Normal Affect, Normal Mood Assessment and Plan - Patient Problems (1) Chronic cholecystitis due to cholelithiasis with choledocholithiasis Current Visit: Yes Status: Acute Priority: High Onset Date: 08/09/18 Comment: Please see the history of present illness. Patient needs an ERCP with probable stent placement. Recommend transfer to [facility] [place] for the same. If they wish they can send him back here for definitive surgical care. Code(s): K80.64 - Calculus of gallbladder and bile duct with chronic cholecystitis without obstruction
--- NOTE | 2018-08-10 16:53 | DI ---
US Abdomen Limited,08/10/2018 10:51 AM: Clinical History: Abdominal pain Previous Exam: 07/10/14 Findings: Multiple grayscale and color Doppler sonographic images are obtained through the abdomen. The liver is normal measuring 15.6 cm. There are multiple hyperechoic densities which are freely mobile and which layer within the gallbladd er without any posterior shadowing. The gallbladder wall measures 3 mm. There was a small amount of pericholecystic fluid. Common bile duct measured 4 mm distally, but there was some echogenicity within the common bile duct and dilation of the proximal portion of the common bile duct to 9 mm. The right kidney measures 10.7 cm in length without hydronephrosis nor nephrolithiasis. The aorta is unremarkable. Impression: 1. Cholelithiasis. 2. Question of density within the common bile duct and dilation of the proximal common bile duct 9 mm . This is worrisome for choledocholithiasis. Recommend ERCP for further evaluation as patient is unab le to get an MRCP.
== END 2018-08-10 16:47 | disposition short-term general hospital (02) | DRG 439 ==
LOC: ER 22:18 → MED/SURG 08-10 00:56
PROVIDERS: ADMIT Family Medicine; ATTEND Family Medicine